=== PATIENT | female | born 1970 | race African-American/Black ===

== ENCOUNTER → 2021-04-07 11:56 | Outpatient (BNVA) | payer OTHER, SELFPAY | PROVIDERS: PCP Internal Medicine; Referring Provider Internal Medicine; Visit Provider Physician Assistant ==

== ENCOUNTER → 2021-04-25 08:25 | Outpatient (BNVA) | payer OTHER, SELFPAY | PROVIDERS: PCP Internal Medicine; Visit Provider Surgery ==

== ENCOUNTER 2021-05-03 09:32 | Outpatient (REF) | payer OTHER, SELFPAY ==
--- NOTE | ~2021-05-03 | XR_ITS ---
EXAMINATION: XR CHEST CLINICAL INFORMATION: Morbid obesity COMPARISON: None TECHNIQUE: 2 views of the chest were obtained. FINDINGS: No significant abnormality is noted involving the heart, lungs, mediastinum, bony thorax or soft tissues. XR/XR chest 2V IMPRESSION: Unremarkable examination.
[2021-05-03 09:58] LABS: MANUAL DIFF FLAG NO
[2021-05-03 10:08] LABS: Basophils Percent Auto 0.4 % (0-2); Eosinophils Absolute Auto 0.2 X10*3/uL (0.0-0.4); Eosinophils Percent Auto 3.1 % (0-4); Hematocrit 38.2 % (37.0-47.0); Imm Gran Abs Auto 0.01 X10*3/uL (0.00-0.03); Imm Gran Pct Auto 0.1 % (0.0-0.4); Lymphocytes Absolute Auto 3.1 X10*3/uL (1.2-4.9); Lymphocytes Percent Auto 43.5 % (20-40); Mean Corpuscular HGB Conc 31.4 g/dl (31.0-35.0); Mean Corpuscular Volume 92.3 fL (80.0-98.0); Mean Platelet Volume 9.9 fL (9.4-12.3); Monocytes Absolute Auto 0.5 X10*3/uL (0.1-1.2); Monocytes Percent Auto 6.3 % (2-11); Neutrophils Absolute Auto 3.3 x10*3/uL (2.0-8.3); Neutrophils Percent Auto 46.6 % (45-73); Platelet Count 283 X10*3/uL (160-400); Red Blood Count 4.14 X10*6/uL (4.20-5.50); Red Cell Distribution Width 13.2 % (11.0-16.0); White Blood Count 7.1 X10*3/uL (4.8-10.8)
[2021-05-03 10:16] LABS: Estimated Average Glucose 103 mg/dL; Hemoglobin A1c % 5.2 %
[2021-05-03 10:33] LABS: Alanine Aminotransferase 13 U/L (0-31); Albumin Level 4.3 g/dL (3.5-5.0); Alkaline Phosphatase 64 U/L (39-117); Anion Gap 14 (12-20); Aspartate Amino Transferase 17 U/L (5-31); Bilirubin Total 0.4 mg/dL (0.0-1.0); Blood Urea Nitrogen 23 mg/dL (9-16); C Reactive Protein 0.93 mg/dL (< or = 0.50); Calcium 9.4 mg/dL (8.4-10.2); Carbon Dioxide 29 mmol/L (22-29); Chloride 106 mmol/L (96-108); Cholesterol 158 mg/dL; Estimated Glomerular Filt Rate 59; Glucose Random 91 mg/dL (60-115); HDL Cholesterol 39 mg/dL; Iron 68 mcg/dL (30-160); LDL Cholesterol Calculated 102 mg/dl; Percent Iron Saturation 24 % (15-50); Potassium 4.7 mmol/L (3.3-5.1); Sodium 144 mmol/L (135-145); Total Iron Binding Capacity 281 mcg/dL (228-428); Total Protein 7.6 g/dL (6.5-8.0); Triglycerides 88 mg/dL; Unsaturated Iron Binding 213 ug/dL
[2021-05-03 10:59] LABS: Ferritin 111 ng/mL (10-250); Insulin 14 uU/mL (2-29); TSH reflex Free T4 2.56 uIU/mL (0.32-4.0); Vitamin D 25-OH Total 36.9 ng/mL (>30)
[2021-05-05 09:03] LABS: Folate 6.2 ng/mL (> or = 4.0); Vitamin B12 390 pg/mL (200-900)
[2021-05-05 13:35] LABS: Calcium (PTHI) 9.4 mg/dL (8.6-10.4); PTHI 82 pg/mL (14-64)
[2021-05-07 07:37] LABS: Zinc 66 mcg/dL (60-130)
[2021-05-07 17:06] LABS: Vitamin A 70 mcg/dL (38-98)
[2021-05-08 08:15] LABS: Vitamin B1 17 nmol/L (8-30)
== END 2021-05-03 09:33 | disposition home or self-care (01) ==
LOC: HO.XRAY 09:32
PROVIDERS: PCP Internal Medicine; Visit Provider Surgery
DX: E66.01 Morbid (severe) obesity due to excess calories (principal); I10 Essential (primary) hypertension; G47.30 Sleep apnea, unspecified; E78.5 Hyperlipidemia, unspecified; J45.909 Unspecified asthma, uncomplicated
CPT/HCPCS: 36415; 71046; 80053; 80061; 82306; 82607; 82728; 82746; 83036; 83525; 83540; 83970; 84425; 84443; 84590; 84630; 85025; 86140

== ENCOUNTER → 2021-05-05 09:45 | Outpatient (REF) | payer OTHER, SELFPAY ==
--- NOTE | 2021-05-05 10:03 | ECG_ITS ---
Test Reason : E66.01 Blood Pressure : / mmHG Vent. Rate : 081 BPM Atrial Rate : 081 BPM P-R Int : 184 ms QRS Dur : 080 ms QT Int : 378 ms P-R-T Axes : 054 -09 015 degrees QTc Int : 439 ms Normal sinus rhythm Minimal voltage criteria for LVH, may be normal variant ( R in aVL ) Borderline ECG No previous ECGs available Referred By: John Sykes Electronically Signed By:CHERI HUTCHINSON MD
== END ==
LOC: HO.CARD 09:45
PROVIDERS: PCP Internal Medicine; Visit Provider Surgery
DX: E66.01 Morbid (severe) obesity due to excess calories (principal); I10 Essential (primary) hypertension; G47.30 Sleep apnea, unspecified; E78.5 Hyperlipidemia, unspecified; J45.909 Unspecified asthma, uncomplicated
CPT/HCPCS: 93005

== ENCOUNTER → 2021-05-14 09:34 | Outpatient (BNVA) | payer OTHER, SELFPAY | PROVIDERS: PCP Internal Medicine; Visit Provider Physician Assistant | DX: Z13.89 Encounter for screening for other disorder (principal) | CPT/HCPCS: 99211 ==

== ENCOUNTER 2021-05-14 14:11 | Outpatient (REF) | payer OTHER, SELFPAY ==
[2021-05-14 16:15] LABS: H Pylori Breath Test Positive (Negative)
== END 2021-05-14 14:12 | disposition home or self-care (01) ==
LOC: HO.LNP 14:11
PROVIDERS: Visit Provider Surgery
DX: E66.01 Morbid (severe) obesity due to excess calories (principal); I10 Essential (primary) hypertension; G47.30 Sleep apnea, unspecified; E78.5 Hyperlipidemia, unspecified; J45.909 Unspecified asthma, uncomplicated
CPT/HCPCS: 83013; 99211

== ENCOUNTER → 2021-05-26 10:06 | Outpatient (BNVA) | payer OTHER, SELFPAY | PROVIDERS: PCP Internal Medicine; Referring Provider Internal Medicine; Visit Provider Dietitian, Registered | DX: E66.01 Morbid (severe) obesity due to excess calories (principal); Z68.42 Body mass index [BMI] 45.0-49.9, adult | CPT/HCPCS: 97802 ==

== ENCOUNTER → 2021-06-02 08:14 | Outpatient (BNVA) | payer OTHER, SELFPAY | PROVIDERS: PCP Internal Medicine; Visit Provider Surgery | DX: Z13.89 Encounter for screening for other disorder (principal) ==

== ENCOUNTER → 2021-06-04 10:39 | Outpatient (BNVA) | payer OTHER, SELFPAY | PROVIDERS: PCP Internal Medicine; Referring Provider Internal Medicine; Visit Provider Counselor Mental Health | DX: F50.81 Binge eating disorder (principal); F41.1 Generalized anxiety disorder | CPT/HCPCS: 90791 ==

== ENCOUNTER → 2021-06-19 08:05 | Outpatient (BNVA) | payer OTHER, SELFPAY | PROVIDERS: PCP Internal Medicine; Visit Provider Dietitian, Registered | DX: E66.01 Morbid (severe) obesity due to excess calories (principal); Z68.41 Body mass index [BMI] 40.0-44.9, adult | CPT/HCPCS: 97803 ==

== ENCOUNTER 2021-06-23 09:41 | Outpatient (REF) | payer OTHER, SELFPAY ==
--- NOTE | ~2021-06-23 | FL_ITS ---
EXAMINATION: XR FLUOROSCOPY UPPER GI WITH AIR CLINICAL INFORMATION: Severe obesity. COMPARISON: None. TECHNIQUE: Routine upper GI air-contrast study was performed. FINDINGS: Following oral administration of thick barium and effervescent granules, there is normal propagation of bolus from the oral cavity through the pharynx and esophagus and into the stomach without any evidence of obstruction, narrowing or stricture. On placing patient supine and prone lying, there is mild gastroesophageal reflux without hiatal hernia. Otherwise the course, caliber and peristalsis of stomach and the duodenal bulb and the sweep are normal. The mucosal pattern of the stomach and the duodenum is normal. FLUOROSCOPY TIME: 2.2 minutes. DOSE AREA PRODUCT: 33.198 uGy-m2 (microgray-meter squared). FL/FL upper GI w air IMPRESSION: Mild gastroesophageal reflux without hiatal hernia.
--- NOTE | ~2021-06-23 | US_ITS ---
EXAMINATION: US COMPLETE ABDOMEN WITH LIVER ELASTOGRAPHY CLINICAL INFORMATION: Obesity COMPARISON: None. TECHNIQUE: Real-time imaging of the abdominal viscera. Noninvasive ultrasound liver fibrosis assessment is performed using Krishna ElastPQ point quantification shear wave elastography (2D-SWE) with a C5-2 MHz transducer. Multiple elastography samples are obtained. FINDINGS: PANCREAS: Not well visualized ABDOMINAL AORTA: The proximal, middle, and distal aortic segments are normal in caliber. INFERIOR VENA CAVA: Visualized portions are normal. LIVER: Normal. The liver demonstrates normal size, contour and echogenicity. No focal lesion or intrahepatic biliary duct dilatation. The right lobe measures 16 cm in length. The left lobe measures 13 cm in length. Portal flow is normal/hepatopedal. Shear wave liver elastography median stiffness is 1.06 m/s (reference: normal median stiffness is 1.3 m/s or less). IQR/median stiffness to assess sampling precision is 0.14 (reference: good quality data set is IQR/median stiffness of 0.15 or less). GALLBLADDER: Normal. The gallbladder is physiologically distended without evidence of stones, sludge, polyps, wall thickening or pericholecystic fluid. COMMON BILE DUCT: Normal in caliber measuring 0.5 cm in diameter. RIGHT KIDNEY: Normal. No hydronephrosis. No renal calculi or focal parenchymal lesions. The kidney measures 10.3 cm in maximum dimension. LEFT KIDNEY: Normal. No hydronephrosis. No renal calculi or focal parenchymal lesions. The kidney measures 11 cm in maximum dimension. SPLEEN: Normal. The spleen measures 9.4 cm in maximum dimension. FREE FLUID: None. US/US abdomen comp w elastography IMPRESSION: 1. Impression: Limited visualization of the pancreas. Otherwise unremarkable exam. 2. Liver elastography: Adequate liver sampling. Normal liver stiffness. REFERENCE: Society of Radiologists in Ultrasound Liver Stiffness Thresholds (2020): LIVER STIFFNESS THRESHOLDS: *Liver Stiffness equal or less than 1.3 m/s: High probability of being normal. *Liver Stiffness less than 1.7 m/s: In the absence of other known clinical signs, rules out compensated advanced chronic liver disease. *Liver Stiffness 1.7-2.1 m/s: Suggestive of compensated advanced chronic liver disease but need further test for confirmation. *Liver Stiffness over 2.1 m/s: Rules in compensated advanced chronic liver disease. *Liver Stiffness over 2.4 m/s: Suggestive of clinically significant portal hypertension. QUALITY OF DATA SET: *IQR/Median value equal or less than 0.15 implies a quality data set. *IQR/Median value over 0.15 implies a poor quality data set. SIGNIFICANT CHANGE FROM PRIOR EXAM: Significant change if liver stiffness measurement is 10% or greater from prior exam. OTHER CONSIDERATIONS: The stage of liver fibrosis may be overestimated in the setting of acute hepatitis, liver inflammation, elevated liver function tests, hepatic vascular congestion, obstructive cholestasis, non-fasting state, and infiltrative diseases such as amyloidosis and lymphoma. In some patients with NAFLD, the liver stiffness thresholds for compensated advanced chronic liver disease may be lower. In causes other than viral hepatitis and NAFLD, liver stiffness thresholds are not well established.
== END 2021-06-23 09:42 | disposition home or self-care (01) ==
LOC: HO.US 09:41
PROVIDERS: PCP Internal Medicine; Visit Provider Surgery
DX: E66.01 Morbid (severe) obesity due to excess calories (principal); I10 Essential (primary) hypertension; G47.30 Sleep apnea, unspecified; E78.5 Hyperlipidemia, unspecified; J45.909 Unspecified asthma, uncomplicated
CPT/HCPCS: 74246; 76705; 76981

== ENCOUNTER 2021-06-24 09:47 | Outpatient (REF) | payer OTHER, SELFPAY ==
[2021-06-28 10:04] LABS: H Pylori Breath Test Positive (Negative)
== END 2021-06-24 09:48 | disposition home or self-care (01) ==
LOC: HO.LNP 09:47
PROVIDERS: PCP Internal Medicine; Referring Provider Internal Medicine; Visit Provider Physician Assistant Surgical
DX: Z01.818 Encounter for other preprocedural examination (principal)
CPT/HCPCS: 83013; 99211

== ENCOUNTER → 2021-07-04 13:40 | Outpatient (BNVA) | payer OTHER, SELFPAY | PROVIDERS: PCP Internal Medicine; Referring Provider Internal Medicine; Visit Provider Surgery | DX: Z13.89 Encounter for screening for other disorder (principal) ==

== ENCOUNTER → 2021-07-09 08:31 | Outpatient (BNVA) | payer OTHER, SELFPAY | PROVIDERS: PCP Internal Medicine; Visit Provider Surgery | DX: Z13.89 Encounter for screening for other disorder (principal) ==

== ENCOUNTER 2021-07-15 07:54 | Inpatient (IN) | payer OTHER, SELFPAY ==
[2021-07-03 12:11] VITALS: BMI 43.0
--- NOTE | 2021-07-08 13:56 | P.CONAN_ITS ---
Documented by User: Maria Del Rosario Bustamante NP 07/08/21 13:58 HPI - Anesthesia Eval Consult details Narrative: 51yo F for Gastrectomy Sleeve,EGD,possible diaphragmatic hernia,possible ventral hernia,possible open T/C with Dr Garrido, Neurology - Pt has not had any recent seizures and is optimized on current medications. [facility] Active Problems Active Problems: All Active Problems (Updated 07/03/21 @ 13:06 by Ilene Newby RN) Vitamin B12 deficiency (Acute) H. pylori infection (Acute) Binge eating disorder (Acute) Generalized anxiety disorder (Acute) Insomnia (Acute) Anxiety (Acute) Depression (Acute) Asthma (Acute) Hyperlipidemia (Acute) CVA (cerebral vascular accident) (Acute) Seizure (Acute) Sleep apnea with use of continuous positive airway pressure (CPAP) (Acute) Hypertension (Acute) Morbid obesity (Acute) Past Medical History Medical History (Updated 07/15/21 @ 10:44 by John Sykes MD) Anxiety Asthma CVA (cerebral vascular accident) Depression Hyperlipidemia Hypertension Insomnia Morbid obesity Post traumatic stress disorder (PTSD) Seizure Sleep apnea with use of continuous positive airway pressure (CPAP) Family History Family History (Updated 04/24/21 @ 09:14 by Cristina Iglesias LPN) Mother Diabetes Brother No problems noted. Surgical History Surgical History (Updated 07/15/21 @ 13:49 by ANJEL Quezada) Hx of colonoscopy Hx of wisdom tooth extraction Social History Social History (Updated 04/24/21 @ 09:11 by Cristina Iglesias LPN) Household Members Other:: mother Are you a primary post acute care nurse to a significant other at home: No Alcohol intake: current Alcohol intake frequency: does not drink Patient Tobacco Use Status: Never used Tobacco Use of substances other than those prescribed or required for medical reasons: No Have you been hit, kicked, punched, or otherwise hurt by someone within the past year? If so, by whom?: No Are you DNR?: No Advance Directives: No Advance Directives Information Provided: Yes Advance Directives on File: No Recently lost weight without trying: No Patient : No FDLMP: unknown : No Poor oral hygiene: No Meds Allergies Allergy/AdvReac Type Severity Reaction Status Date / Time Seasonal Allergies Allergy Mild itchy Verified 07/09/21 13:20 eyes, runny nose Home Medications Medication Instructions Recorded Confirmed Last Taken Type albuterol sulfate 90 mcg/actuation 2 puff INHALATION QID PRN 04/07/21 07/09/21 Unknown History aerosol inhaler (ProAir HFA) aripiprazole 5 mg tablet 5 mg PO DAILY 04/07/21 07/09/21 Unknown History aspirin 81 mg tablet,delayed 81 mg PO DAILY 04/07/21 07/09/21 Unknown History release atorvastatin 40 mg tablet 40 mg PO BEDTIME 04/07/21 07/09/21 Unknown History carbamazepine 100 mg 100 mg PO BID 04/07/21 07/09/21 07/15/21 History capsule,extended release [id number] carbamazepine 300 mg 300 mg PO BID 04/07/21 07/09/21 07/15/21 History capsule,extended release [id number] cholecalciferol (vitamin D3) 50 50 mcg PO .DAILY @1200 04/07/21 07/09/21 Unknown History mcg (2,000 unit) capsule (Vitamin D3) clonazepam 0.5 mg tablet 0.5 mg PO DAILY PRN 04/07/21 07/09/21 Unknown History docusate sodium 100 mg capsule 100 mg PO BID 04/07/21 07/09/21 Unknown History escitalopram oxalate 10 mg tablet 30 mg PO DAILY 04/07/21 07/09/21 Unknown History ferrous fumarate 324 mg (106 mg 324 mg PO DAILY 04/07/21 07/09/21 Unknown History iron) tablet (Ferrocite) fluticasone propionate 110 1 inh INHALATION DAILY 04/07/21 07/09/21 Unknown History mcg/actuation HFA aerosol inhaler (Flovent HFA) labetalol 200 mg tablet 800 mg PO TID 04/07/21 07/09/21 07/15/21 History montelukast 10 mg tablet 10 mg PO BEDTIME 04/07/21 07/09/21 Unknown History nifedipine 90 mg tablet,extended 90 mg PO DAILY 04/07/21 07/09/21 Unknown History release peg-electrolyte solution 420 gram ml PO 04/07/21 07/09/21 Unknown History oral solution prazosin 1 mg capsule 3 mg PO BEDTIME 04/07/21 07/09/21 Unknown History sennosides 8.6 mg tablet (senna) 8.6 mg PO BID 04/07/21 07/09/21 Unknown History hydroxyzine HCl 50 mg tablet 1 tab PO TID 07/15/21 07/15/21 Unknown History Exam Exam Date and Time: July 08, 2021 1356 Height,Weight and Vital Signs: Height 5 ft 3 in Weight 110.223 kg Narrative Narrative: EKG 04/2021 Vent. Rate : 081 BPM ? ? Atrial Rate : 081 BPM ?? P-R Int : 184 ms? QRS Dur : 080 ms ? ? QT Int : 378 ms ? ? ? P-R-T Axes : 054 -09 015 degrees ?? QTc Int : 439 ms ? Normal sinus rhythm Minimal voltage criteria for LVH, may be normal variant ( R in aVL ) Borderline ECG No previous ECGs available Assessment and Plan Assessment Anesthesia Assessment: Chart Reviewed Documented by User: Henry Terrazas MD 07/15/21 18:45 HPI - Anesthesia Eval Consult details Narrative: 51yo F for Gastrectomy Sleeve,EGD,possible diaphragmatic hernia,possible ventral hernia,possible open T/C with Dr Garrido, Neurology - Pt has not had any recent seizures and is optimized on current medications. As per patient had a seizure vs Aura on wednesday , patient became disoriented and confused , took clonazepam and felt at baseline patient contacted the neurologist , as per the neurologist this was possibly Aura and did not want to change any medications and was on board to proceed with the planned procdure . [facility] Past Medical History Medical History (Updated 07/15/21 @ 10:44 by John Sykes MD) Anxiety Asthma CVA (cerebral vascular accident) Depression Hyperlipidemia Hypertension Insomnia Morbid obesity Post traumatic stress disorder (PTSD) Seizure Sleep apnea with use of continuous positive airway pressure (CPAP) Family History Family History (Updated 04/24/21 @ 09:14 by Cristina Iglesias LPN) Mother Diabetes Brother No problems noted. Family history of problems with anesthesia: No Surgical History Surgical History (Updated 07/15/21 @ 13:49 by ANJEL Quezada) Hx of colonoscopy Hx of wisdom tooth extraction History of Problems with Anesthesia: No Social History Social History (Updated 04/24/21 @ 09:11 by Cristina Iglesias LPN) Household Members Other:: mother Are you a primary post acute care nurse to a significant other at home: No Alcohol intake: current Alcohol intake frequency: does not drink Patient Tobacco Use Status: Never used Tobacco Use of substances other than those prescribed or required for medical reasons: No Have you been hit, kicked, punched, or otherwise hurt by someone within the past year? If so, by whom?: No Are you DNR?: No Advance Directives: No Advance Directives Information Provided: Yes Advance Directives on File: No Recently lost weight without trying: No Patient : No FDLMP: unknown : No Poor oral hygiene: No Meds Allergies Allergy/AdvReac Type Severity Reaction Status Date / Time Seasonal Allergies Allergy Mild itchy Verified 07/09/21 13:20 eyes, runny nose Home Medications Medication Instructions Recorded Confirmed Last Taken Type albuterol sulfate 90 mcg/actuation 2 puff INHALATION QID PRN 04/07/21 07/09/21 Unknown History aerosol inhaler (ProAir HFA) aripiprazole 5 mg tablet 5 mg PO DAILY 04/07/21 07/09/21 Unknown History aspirin 81 mg tablet,delayed 81 mg PO DAILY 04/07/21 07/09/21 Unknown History release atorvastatin 40 mg tablet 40 mg PO BEDTIME 04/07/21 07/09/21 Unknown History carbamazepine 100 mg 100 mg PO BID 04/07/21 07/09/21 07/15/21 History capsule,extended release [id number] carbamazepine 300 mg 300 mg PO BID 04/07/21 07/09/21 07/15/21 History capsule,extended release [id number] cholecalciferol (vitamin D3) 50 50 mcg PO .DAILY @1200 04/07/21 07/09/21 Unknown History mcg (2,000 unit) capsule (Vitamin D3) clonazepam 0.5 mg tablet 0.5 mg PO DAILY PRN 04/07/21 07/09/21 Unknown History docusate sodium 100 mg capsule 100 mg PO BID 04/07/21 07/09/21 Unknown History escitalopram oxalate 10 mg tablet 30 mg PO DAILY 04/07/21 07/09/21 Unknown History ferrous fumarate 324 mg (106 mg 324 mg PO DAILY 04/07/21 07/09/21 Unknown History iron) tablet (Ferrocite) fluticasone propionate 110 1 inh INHALATION DAILY 04/07/21 07/09/21 Unknown History mcg/actuation HFA aerosol inhaler (Flovent HFA) labetalol 200 mg tablet 800 mg PO TID 04/07/21 07/09/21 07/15/21 History montelukast 10 mg tablet 10 mg PO BEDTIME 04/07/21 07/09/21 Unknown History nifedipine 90 mg tablet,extended 90 mg PO DAILY 04/07/21 07/09/21 Unknown History release peg-electrolyte solution 420 gram ml PO 04/07/21 07/09/21 Unknown History oral solution prazosin 1 mg capsule 3 mg PO BEDTIME 04/07/21 07/09/21 Unknown History sennosides 8.6 mg tablet (senna) 8.6 mg PO BID 04/07/21 07/09/21 Unknown History hydroxyzine HCl 50 mg tablet 1 tab PO TID 07/15/21 07/15/21 Unknown History Exam Airway Mallampati Class: IV TM Dist: >3cm Neck ROM: Full Loose/Missing/Broken Teeth: Yes Heart: S1, S2 Lungs: b/l breath sounds Assessment and Plan Assessment Anesthesia Assessment: Anesthesia Plan Discussed Final Anesthetic Review Family History of Problems with Anesthesia: No History of Problems with Anesthesia: No NPO: Yes ASA Class: III Final Preanesthetic Review: Meds/Allgs Chart Reviewed, Consent Obtained/Reviewed and Anes Risks/Benef Reviewed Patient Risk: High Procedure Risk: Intermediate Anesthetic Plan Anesthetic Plan: GA Disposition: Inp. Admit - Standard Bed
[2021-07-10 10:15] LABS: MANUAL DIFF FLAG NO
[2021-07-10 10:52] LABS: Basophils Percent Auto 0.4 % (0-2); Eosinophils Absolute Auto 0.3 X10*3/uL (0.0-0.4); Eosinophils Percent Auto 3.4 % (0-4); Hematocrit 37.9 % (37.0-47.0); Hemoglobin 12.2 g/dl (12.0-16.0); Imm Gran Abs Auto 0.02 X10*3/uL (0.00-0.03); Imm Gran Pct Auto 0.3 % (0.0-0.4); Lymphocytes Absolute Auto 2.4 X10*3/uL (1.2-4.9); Lymphocytes Percent Auto 32.3 % (20-40); Mean Corpuscular HGB Conc 32.2 g/dl (31.0-35.0); Mean Corpuscular Hemoglobin 29.2 pg (27.0-33.0); Mean Corpuscular Volume 90.7 fL (80.0-98.0); Mean Platelet Volume 10.2 fL (9.4-12.3); Monocytes Absolute Auto 0.5 X10*3/uL (0.1-1.2); Monocytes Percent Auto 6.8 % (2-11); Neutrophils Absolute Auto 4.2 x10*3/uL (2.0-8.3); Neutrophils Percent Auto 56.8 % (45-73); Platelet Count 301 X10*3/uL (160-400); Red Blood Count 4.18 X10*6/uL (4.20-5.50); Red Cell Distribution Width 13.6 % (11.0-16.0); White Blood Count 7.4 X10*3/uL (4.8-10.8)
[2021-07-10 11:02] LABS: Estimated Average Glucose 97 mg/dL
[2021-07-10 11:09] LABS: INTERNATIONAL NORM RATIO 1.2 (0.9-1.1); Prothrombin Time 13.4 SEC (9.9-13.0)
[2021-07-10 11:12] LABS: Partial Thromboplastin Time 36.7 SEC (24.1-38.0)
[2021-07-10 11:41] LABS: Alanine Aminotransferase 16 U/L (0-31); Albumin Level 4.3 g/dL (3.5-5.0); Alkaline Phosphatase 79 U/L (39-117); Anion Gap 16 (12-20); Aspartate Amino Transferase 17 U/L (5-31); Bilirubin Total 0.3 mg/dL (0.0-1.0); Blood Urea Nitrogen 16 mg/dL (9-16); C Reactive Protein 1.71 mg/dL (< or = 0.50); Calcium 9.9 mg/dL (8.4-10.2); Carbon Dioxide 27 mmol/L (22-29); Chloride 104 mmol/L (96-108); Cholesterol 169 mg/dL; Creatinine Clr Calc Pharmacy 88.1; Estimated Glomerular Filt Rate > 60; Glucose Random 96 mg/dL (60-115); HDL Cholesterol 35 mg/dL; LDL Cholesterol Calculated 108 mg/dl; Potassium 4.5 mmol/L (3.3-5.1); Sodium 142 mmol/L (135-145); Total Protein 7.8 g/dL (6.5-8.0); Triglycerides 130 mg/dL
[2021-07-10 11:54] LABS: Insulin 13 uU/mL (2-29); TSH reflex Free T4 2.27 uIU/mL (0.32-4.0)
--- NOTE | 2021-07-12 17:57 | P.HPSUR_ITS ---
Pre-Procedural Eval Section A Date of Service: 07/12/21 The patient is an INPATIENT: Yes The History & Physical has been completed within 30 days and I have reviewed it.: Yes Section B Chief Complaint: odesity Relevant Family History (Specify if Yes): No Relevant Social History: None Present Medications: None Medical History: No relevant PMH History of Previous Operations: No relevant previous surgery Allergies: Allergies Allergy/AdvReac Type Severity Reaction Status Date / Time Seasonal Allergies Allergy Mild itchy Verified 07/09/21 13:20 eyes, runny nose Review of Systems Sugical H&P ROS: Negative: Constitution, Cardiovascular, Respiratory, Neurological, Psychiatric, Hem-Onc, Allergic/Immunologic, Gastrointestinal, Genitourinary, Musculoskeletal, Integumentary, Endocrine and Eyes/Ears/Nos e/Throat Exam Surgical H&P Exam: Normal: HEENT, Normal: Heart, Normal: Lungs, Normal: Extremities, Normal: Abdomen, Normal: Skin and Normal: Neurological Plan Diagnosis/Plan: Unchanged I have reviewed the history and physical and performed a pertinent physical examination on my patient. No changes have occurred unless specified.
[2021-07-14 13:03] LABS: COVID-19 Test Negative (Negative); IDNOW Serial# 16C4AD1C
[2021-07-15] VITALS (15 sets, daily range): BP systolic 147–190; BP diastolic 80–110; PULSE 71–83; RESP 16–20; TEMP 36.5–37.1; O2SAT 91–99
[2021-07-15] MEDS: Lactated Ringers 1,000 ML 999 ML IV (08:45)
--- NOTE | 2021-07-15 10:42 | PM.PNGS ---
Subjective Subjective Date of Service: 07/16/21 Interval history: Patient has mild incisional pain, but was able to ambulate and use the incentive spirometer. She is tolerating phase 1 bariatric diet Physical Exam Vital Signs: Vital Signs: Last Vital Signs Temp 97.7 F 07/15/21 08:29 Pulse 72 07/15/21 08:29 Resp 16 07/15/21 08:29 BP 147/80 H 07/15/21 08:29 Pulse Ox 97 07/15/21 08:29 BMI result Body Mass Index 43.0 GI: Inspection: Yes normal to inspection, Yes incision (clean, dry and intact) and Yes obesity Extrem: Right lower extremity: normal to inspection (no calf tenderness) Left lower extremity: normal to inspection (no calf tenderness) Objective Data Active Medications Albuterol Sulfate (Albuterol Sulfate (0.083%) 2.5 Mg/3 Ml Vial.Neb) 2.5 mg INHALE ONCE PRN PRN Reason: Shortness of Breath/Wheezing Lactated Ringer's (Lr) 1,000 mls @ 100 mls/hr IVCONT .Q10H DAMON Labs CBC & Chem 7: 07/16/21 06:08 07/16/21 06:08 Labs: Laboratory Results - last 24 hr 07/14/21 12:38 COVID-19 (SOFIA) Negative COVID-19 Clin Com See Note Procedures Date of Service Date of Service: 07/16/21 Progress Note: A&P Assessment and plan (1) Morbid obesity: Status: Acute Assessment and Plan: s/p laparoscopic sleeve gastrectomy, lysis of adhesions repair of diaphragmatic hernia, and gastropexy Doing well Check am labs. If OK, will discharge home? (2) Hypertension: Status: Acute (3) Sleep apnea with use of continuous positive airway pressure (CPAP): Status: Acute (4) Seizure: Status: Acute (5) CVA (cerebral vascular accident): Status: Acute (6) Hyperlipidemia: Status: Acute (7) Asthma: Status: Acute (8) Anxiety: Status: Acute (9) Depression: Status: Acute (10) GERD (gastroesophageal reflux disease): Status: Acute (11) S/P laparoscopic sleeve gastrectomy: Status: Acute Time Spent With Patient Time: Total time spent is greater than 50% in coordination of care (as documented) at patient's floor/unit and/or counseling patient: Quality Stroke Does the patient have a stroke diagnosis?: No VTE Prior VTE?: No VTE Risk Level:: Surgical - moderate VTE Device Contraindication: N/A - Device Ordered VTE Drug Contraindication: Treatment Not Indicated
--- NOTE | 2021-07-15 10:44 | PM.OP ---
Brief Operative Note Date of Service: 07/15/21 Pre-op diagnosis: Morbid obesity with comorbidities (see below) Post-op diagnosis: same Procedure: INITIAL PATIENT BMI ON PRESENTATION AT OUR OFFICE: 47.8 kg/m2 LAST BMI BEFORE SURGERY: 42.8 kg/m2 COMORBIDITIES: sleep apnea on CPAP, hypertension, hyperlipidemia, seizure, CVA, asthma, depression, anxiety, GERD ?The patient presented to the Weight Management Program with significant obesity that was negatively impacting the patient's comorbidities as listed above.? The program is a phased program with a special focus on preoperative medical weight management to promote substantial weight loss and prepare the patients for the second phase of the program: bariatric surgery. The patient participated in an intensive weekly lifestyle ?intervention and exercise program during which the patient ?has lost between the initial office visit and the last preoperative visit 31.6lbs, or 11.7% of initial actual body weight. It was deemed appropriate for the patient to now have bariatric surgery. In light of the current Covid-19 pandemic and the well documented strong association of obesity and increased risk of worse outcomes if infected with Covid-19 (REFERENCES:https://pubmed.ncbi.nlm.nih.gov/55137635/,?https://pubmed.ncbi.nlm.nih.gov/67372759/), any delay in undergoing bariatric surgery may lead to the patient's worsening health condition and increased?risk of more severe Covid-19 disease if infected. In addition a recent?study from [facility] published in [facility] on 02/24/2021 ([email or web address]) found that, among patients with obesity, substantial weight loss achieved with surgery was associated with improved outcomes of COVID-19 infection. The findings suggest that obesity can be a modifiable risk factor for the severity of COVID-19 infection. In addition, the patient met the BMI-criteria for bariatric surgery based on the BMI on initial presentation. The patient should not be penalized for achieving such weight loss because ?it is not sustainable long-term without surgical intervention and it was achieved in preparation for bariatric surgery ?under my direction and based on my published research ([email or web address]).[email or web address] and?https://www.soard.org/article/[email or web address])42330-[email or web address]/pdf) ?that a 10% preoperative weight loss improves long-term weight loss after surgery and reduces perioperative complications.? Insurance carriers such as [facility] have endorsed my recommendations ?and have included in their policies criteria to include a 10% preoperative weight loss requirement. PROCEDURE: Esophago-gastroscopy, laparoscopic repair of incarcerated diaphragmatic hernia, laparoscopic lysis of adhesions, laparoscopic sleeve gastrectomy and laparoscopic gastropexy INDICATIONS: This is a 51 year-old female who was electively scheduled for laparoscopic, possibly open sleeve gastrectomy. The risks and complications of the procedure were discussed with the patient in advance, particularly the possibility of ; pulmonary embolism; staple line leak; bleeding; GERD; cardiac, pulmonary, or renal complications; as well as long-term problems such as insufficient weight loss, vitamin deficiency, strictures, or ulcers. The patient understood all the risks, and was in agreement to proceed with surgery. DESCRIPTION OF PROCEDURE: After informed consent was obtained from the patient, the patient was given preoperative antibiotics, and was transferred to the operating room. After successful induction of general anesthesia, pneumatic compression devices were placed on both lower extremities. An upper endoscopy was performed next. The oropharynx and esophagus appeared to be within normal limits. There was no diaphragmatic hernia present, consistent with the findings of the preoperative upper GI. The stomach was entered. Then after all fluid and air were suctioned and the stomach was fully decompressed, the scope was withdrawn and secured in the mid esophagus. The patient was then prepped and draped in the usual sterile manner, and abdominal access was established at the right upper quadrant with the Feliciano technique. A 12 mm blunt port was inserted, and the abdomen was insufflated with CO2 to a pressure of 15 mmHg. Under direct visualization, additional ports were placed, specifically two 5 mm Versi-step ports to the left upper quadrant, and a 5 mm Versi-Step port to the right upper quadrant. 1% lidocaine plain was used to infiltrate all port sites as well as all fascia defects. Following that, the patient was placed in a steep reverse Trendelenburg position. An additional 5 mm port was placed to the right flank for the Mediflex retractor that was used to retract the left lobe of the liver. The gastro-esophageal fat pad was opened with the ultrasonic device (Thunderbeat, Olympus) and the anterior esophagus and hiatus were exposed. The angle of His was opened with the ultrasonic device the fundus of the stomach from any diaphragmatic and splenic attachments. I then opened the gastrocolic ligament between the transverse colon and the greater curvature of the stomach with the ultrasonic device to enter the lesser sac and facilitate the ligation of the short gastric vessels. I started at a mid-point along the greater curvature and using the Thunderbeat, all short gastric vessels were divided all the way to the angle of His until the left kostas was completely dissected at its entirety. I then divided the gastro-colic ligament distally to a distance of about 3-4 cm proximal to the pylorus.? The stomach was then divided transversely with one Endo SUSIE-45 purple, one SUSIE-45 orange loads and four SUSIE-60 articulating orange loads using the AEON stapler and loads. Every effort was made that the gastric sleeve had a tubular shape and an even caliber throughout. Once the sleeve resection was completed, the staple line of the gastric sleeve was reinforced with Hemoclips. The resected stomach was retrieved without difficulty from the Feliciano port. A gastropexy was then performed in order to prevent postoperative GERD and partial gastric volvulus. Several interrupted 2.0 Surgidac sutures were placed between the sleeve's staple line and the previously divided greater omentum and gastro-colic ligament using the Endo-Stitch device. ?An upper endoscopy was performed. There was no narrowing at the GE junction. The scope was easily advanced all the way to the pylorus which was clearly visualized. There was no narrowing anywhere and the sleeve's caliber was even throughout. The sleeve's staple line was inspected and there was no evidence of ischemia, bleeding or dehiscence. At that point the gastroscope was withdrawn from the patient?s mouth while we were decompressing the bowel and the stomach from any remaining air. I looked into the lesser sac to see how the sleeve was situating and it was situating well. There was no bleeding from the staple line, spleen, or short gastric vessels. The Mediflex retractor was removed, and the undersurface of the liver was inspected and there was no bleeding. The patient was placed in supine position. I closed the fascial defect of the 12 mm port site with a figure of eight #1 Polysorb suture. Then 100 cc 0.25 % Marcaine plain with 10 mg of Dexamethasone were used to infiltrate the fascial closure as well as all skin incisions. At this point, the abdomen was deflated, all ports were removed under direct vision, and no bleeding was noted from any of the port sites. The skin incisions were irrigated with saline and were closed with 4-0 absorbable monofilament sutures. Steri-Strips and OpSites were used to cover all incisions. The patient was extubated and was transferred in stable condition to the recovery room for further care. I was present and performed all her parts of the procedure. Mr. Salcido was the list of first job ideas. There were no residents to assist with this case. Royce Sykes MD, PhD, FACS Surgeon: John Sykes MD Anesthesia: GETA, local and other (TAP block & 7ml Zynrelef) Was an Nursery Rn used for this Procedure?: No Nursery Rn: [place] Estimated blood loss (mL): 10 IV fluids (mL): 2,500 Urine output (mL): 0 (No Love to gravity) Pathology: other (Stomach) Condition: stable Disposition: PACU
[2021-07-15] MEDS: Lactated Ringers 1,000 ML 100 ML IVCONT ×2 (10:56→18:17)
--- NOTE | 2021-07-15 11:54 | PHA.MEDREC ---
Pharmacy Consult ? Medication Reconciliation Pharmacy has reviewed the medication reconciliation.
--- NOTE | 2021-07-15 13:55 | P.DS_ITS ---
DS: Providers Provider Date of Service: 07/16/21 Date of admission: 07/15/21 07:54 Primary care physician: Nicolás Andres III, MD DS: Diagnosis Discharge Diagnosis (1) Morbid obesity: Status: Acute (2) Hypertension: Status: Acute (3) Sleep apnea with use of continuous positive airway pressure (CPAP): Status: Acute (4) Seizure: Status: Acute (5) CVA (cerebral vascular accident): Status: Acute (6) Hyperlipidemia: Status: Acute (7) Asthma: Status: Acute (8) Anxiety: Status: Acute (9) Depression: Status: Acute (10) GERD (gastroesophageal reflux disease): Status: Acute DS: Summary Hospital Course Hospital Course: ADMITTING DIAGNOSIS: morbid obesity, asthma, anxiety, htn, depression, cva, hyperlipidemia, ptsd, tania, seizure disorder ? DISCHARGE DIAGNOSIS: same, s/p laparoscopic sleeve gastrectomy ? PAST SURGICAL HISTORY: none ? PROCEDURE: upper endoscopy, laparoscopic sleeve gastrectomy a ? DISCHARGE SUMMARY: ? History of Present Illness: ? The patient is a?51 year-old woman with a BMI of?47.8 kg/m2 and associated co- morbidities as described above. The patient had extensive work-up,lost?27.2 lbs preoperatively and was electively scheduled for laparoscopic, possible open sleeve gastrectomy and gastropexy. Risks and complications of the surgery were discussed with the patient in advance, particularly the possibility of , pulmonary embolism, anastomotic leak, bleeding, bowel injury, GERD, cardiac, renal or pulmonary complications. The patient understood all the risks and was in agreement with the surgical plan. ? Hospital Course: ? The patient underwent an uneventful laparoscopic sleeve gastrectomy with gastropexy on the day of admission. Postoperatively, the patient was transferred to the surgical floor. The patient received IV Acetaminophen and IV dilaudid for pain control. Patient was started on bariatric phase 1 diet POD #0. On posto perative day one, the patient was feeling well without nausea, vomiting, fevers, or tachycardia. The patient had some mild incisional pain and the abdomen was soft. ? On the morning of postoperative day one, the patient was continued on 1 ounce of water or ice every half hour. During the day, the patient did fairly well, having some incisional pain, but able to ambulate adequately and to tolerate liquids well. ? Since the patient is doing well, we decided that the patient was ready to be discharged. The patient was given instructions to follow-up with me next week and to call my office for any fever over 101, persistent abdominal pain, nausea, vomiting, GERD, symptoms of DVT such as calf tenderness, or leg swelling, or pulmonary embolism such as chest pain or shortness of breath. The patient was also instructed to drink 40-60 ounces of liquids per day using the 1-ounce cups. The patient had been given prescriptions for Tylenol for pain, Zofran prn for nausea, and pantoprazole and carafate previously. The patient was encouraged to ambulate and use the incentive spirometer. The patient was allowed to shower, but no baths, and encouraged to stay active at home. All of these ins tructions were given to the patient personally. All questions were answered and the patient understood all instructions, the instructions were also given to the patient in print. Time Spent with Patient Time attestation: Total time spent providing and/or coordinating discharge services: Discharge coordination time: Less than 30 minutes Quality: Safe Use of Opioids Does Pt have an Active Cancer Diagnosis on the Problem List?: No Quality: Stroke Does the patient have a stroke diagnosis?: Yes Reason for No Anti-thrombotic at DC: Contraindicated (recent surgery) Reason for No Anticoagulant at DC: Not indicated (old cva) Reason Not Initiating IV-Tpa: Not indicated (old cva) Reason for No Anti-thrombotic by Day Two: Not indicated (old cva) Reason for No Statin at DC: N/A - Med Ordered Physical Exam Vital Signs: Vital Signs: Last Vital Signs Temp 97.8 F 07/15/21 13:42 Pulse 72 07/15/21 13:47 Resp 20 07/15/21 13:47 BP 159/97 H 07/15/21 13:47 Pulse Ox 91 L 07/15/21 13:47 BMI result Body Mass Index 43.0 DS: Data Data Completed and Pending Pending studies at discharge: Pending at discharge 07/15/21 13:23 Surgical [PTH] Routine Discharge Plan Discharge Patient Disposition: Home, Self-Care Discharge Diagnosis: s/p laparoscopic sleeve gastrectomy Referrals: Nicolás Andres III, MD [Primary Care Provider] - 1 Week Discharge Medications: Continued hydroxyzine HCl 50 mg tablet 1 tab PO TID 0RF labetalol 200 mg tablet 800 mg PO TID Qty: 0 0RF Label Comments: PATIENT ONLY TOOK 400MG THIS AM Rx Instructions: be sure to check blood pressure daily and communicate number with Dr Sykes carbamazepine 100 mg capsule, ER multiphase 12 hr 100 mg PO BID 0RF Label Comments: with 300 mg BID carbamazepine 300 mg capsule, ER multiphase 12 hr 300 mg PO BID 0RF Label Comments: with 100 mg BID aripiprazole 5 mg tablet 5 mg PO DAILY 0RF docusate sodium 100 mg capsule 100 mg PO BID 0RF atorvastatin 40 mg tablet 40 mg PO BEDTIME 0RF sennosides [senna] 8.6 mg tablet 8.6 mg PO BID 0RF montelukast 10 mg tablet 10 mg PO BEDTIME 0RF nifedipine 90 mg tablet extended release 90 mg PO DAILY 0RF escitalopram oxalate 10 mg tablet 30 mg PO DAILY 0RF Flovent HFA 110 mcg/actuation HFA aerosol inhaler 1 inh inhalation DAILY 0RF clonazepam 0.5 mg tablet 0.5 mg PO DAILY PRN (Reason: anxiety) 0RF prazosin 1 mg capsule 3 mg PO BEDTIME 0RF albuterol sulfate [ProAir HFA] 90 mcg/actuation HFA aerosol inhaler 2 puff inhalation QID PRN (Reason: cough) 0RF pantoprazole 40 mg tablet,delayed release (DR/EC) 40 mg PO DAILY Qty: 30 2RF sucralfate 100 mg/mL suspension 10 ml PO BID Qty: 400 2RF ondansetron HCl 4 mg tablet 4 mg PO Q12H Qty: 20 0RF Held aspirin 81 mg tablet,delayed release (DR/EC) 81 mg PO DAILY 0RF Hold Instructions: until discussed with Dr Sykes Discontinued mecobalamin (vitamin B12) 1,000 mcg tablet,disintegrating 1,000 mcg sublingual DAILY Qty: 30 2RF Rx Instructions: place tablet under tongue and allow to dissolve for at least30 secs before swallowing omeprazole 40 mg capsule,delayed release(DR/EC) 40 mg PO DAILY Qty: 14 0RF amoxicillin 500 mg capsule 500 mg PO Q12H Qty: 28 0RF cholecalciferol (vitamin D3) [Vitamin D3] 50 mcg (2,000 unit) capsule 50 mcg PO .DAILY @1200 0RF ferrous fumarate [Ferrocite] 324 mg (106 mg iron) tablet 324 mg PO DAILY 0RF peg-electrolyte soln 420 gram recon soln PO 0RF polyethylene glycol 3350 [Miralax] 17 gram powder in packet 17 g PO DAILY Qty: 14 0RF Rx Instructions: Mix each packet with 8oz of water and do 7 packets on 07/13/21 and another 7 packets on 07/14/21 Discharge Orders: Discharge Order (Routine); Ordered 07/16/21 Ordered By: John Sykes Diet: other Activity on Discharge: No heavy lifting Stand Alone Forms: Patient Portal Discharge page Care Plan Goals: weight loss Health Concerns: morbid obesity Plan of Treatment: No tub baths, sex or returning to work until discussed at first post op appointment. No exercise, alcohol, tobacco or illegal drug use. Continue to use incentive spirometer hourly while awake. Walk in home for 5- 10 minutes every 2 hours during the first week. Follow all instructions in the bariatric handbook and call with any questions.Discharge Instructions 1. Please call your doctor or come back to the emergency room should any new symptoms arise. 2. You will receive a courtesy call from [facility] 24-48 hours after discharge. 3. Activity: abstain from alcohol, practice limited stair climbing, no bending, no driving, no exercise, no illicit substances, no lifting, no sex, no tub bath, no work. 4. Diet: continue as discussed with Dr. Sykes. 5. Dressing Change/Wound Care: Your incision is covered by clear bandages and guaze underneath. If the area is tender, you may apply an ice pack for short intervals (no more than 20 minutes on, followed by at least 20 minutes off). Do not apply heat. Do not use creams, lotions, or topical antibiotics unless instructed to do so by your surgeon. These can cause infection or allergic reaction. 6. Call your doctor if: - Your temperature exceeds 101.5 F - You experience excessive pain or swelling - You have an unexpected reaction to medication - You have excessive bleeding - You experience continued vomiting/nausea - Your incision begins to separate - Your incision shows signs of infection such as increased redness, swelling, excessive pain, heat, or drainage (light blood or clear fluid is normal) 7. General instructions: No lifting greater than 5 lbs for the next 4 weeks[address] driving within 24 hours of taking narcotic pain medications. If you do not move your bowels in the next 2 days, please take milk of magnesia over the counter. Please follow the post op diet and do not advance your diet until you are seen in the office in about 2 weeks. Please walk around your home every hour or two to prevent blood clots from forming in your legs. You do not need to wake from sleeping to walk. Please sleep in a bed or couch to prevent kinking at the hips and knees. Please take your incentive spirometer (your lung crew chief) home with you and use it for the next few days to prevent pneumonias. You may shower, no hot tubs, baths or swimming pools. Please call the office with any questions or concerns such as increasing abdominal pain, fever, chills, shortness of breath, chest pain, leg pain or swelling, or redness or drainage from your incisions. Please stay on stage 3 diet which includes sugar free clear liquids such as ice pops and jello and broth and crystal light. Avoid all carbonation. Please drink 3 protein shakes with at least 25-30 grams of protein daily or 3 of the Celebrate 4:1 shakes which can be purchased in our office. The Celebrate shakes have all of the bariatric vitamins you need if you consume these shakes. If you are drinking other protein shakes, you will need to purchase the Celebrate multivitamins and calcium that we provide in the office (they will provide all the vitamins you need). Please make sure you are consuming at least 40-60 ounces of water in addition to your 3 protein shakes daily. Do not hesitate to contact the office with any questions at . The patient's medical history has been reviewed and they are considered low risk for post op DVT and therefore DVT prophylaxis is not considered necessary. Travel after surgery was reviewed. The patient has not disclosed any travel plans during the first 30 days after surgery and they have been advised that within the first 30 days after surgery any bus, plane, train or car travel over 2 hours in duration is contraindicated due to the possibility of developing blood clots from immobility. Any travel, needs to include periods of ambulation of 10 minutes in duration every 2 hours.? The patient was instructed to discuss any plans for travel during this period with their bariatric surgeon. Assessment: stable s/p laparoscopic sleeve gastrectomy Discharge Date/Time: 07/16/21 10:07
[2021-07-15] MEDS: Metoclopramide HCl 10 MG/2 ML VIAL IVPUSH (14:19)
[2021-07-15] MEDS: Famotidine/PF 20 MG/2 ML VIAL IVPUSH ×2 (14:20→20:54)
[2021-07-15 15:04] LABS: Hematocrit 37.3 % (37.0-47.0); Hemoglobin 12.1 g/dl (12.0-16.0)
[2021-07-15 15:20] LABS: Anion Gap 11 (12-20); Blood Urea Nitrogen 9 mg/dL (9-16); Calcium 9.5 mg/dL (8.4-10.2); Carbon Dioxide 28 mmol/L (22-29); Chloride 104 mmol/L (96-108); Creatinine Clr Calc Pharmacy 94.4; Estimated Glomerular Filt Rate > 60; Glucose Random 139 mg/dL (60-115); Potassium 3.9 mmol/L (3.3-5.1); Sodium 139 mmol/L (135-145)
[2021-07-15] MEDS: Labetalol HCL 200 MG TABLET 800 MG PO ×2 (15:25→23:01)
[2021-07-15] MEDS: ceFAZolin Sodium/Dextrose,Iso 2 GM/50 ML PIGGYBACK IV (17:45)
[2021-07-15] MEDS: ondansetron HCL 4 MG/2 ML VIAL IVPUSH (20:52)
[2021-07-15] MEDS: carBAMazepine ER 200 MG TAB.ER.12H 400 MG PO (21:02)
[2021-07-15] MEDS: Montelukast Sodium 10 MG TABLET PO (21:02)
[2021-07-15] MEDS: Prazosin HCL 1 MG CAPSULE 3 MG PO (21:02)
[2021-07-16] VITALS: BP 158/70; PULSE 85; RESP 18; TEMP 36.6; O2SAT 97
[2021-07-16] MEDS: Lactated Ringers 1,000 ML 100 ML IVCONT (03:45)
[2021-07-16 04:00] VITALS: BP 158/86; PULSE 86; RESP 18; TEMP 36.6; O2SAT 97
[2021-07-16] MEDS: ondansetron HCL 4 MG/2 ML VIAL IVPUSH (04:15)
[2021-07-16 06:44] LABS: MANUAL DIFF FLAG NO
[2021-07-16 06:58] LABS: Basophils Percent Auto 0.2 % (0-2); Eosinophils Percent Auto 0.2 % (0-4); Hemoglobin 11.1 g/dl (12.0-16.0); Imm Gran Abs Auto 0.03 X10*3/uL (0.00-0.03); Imm Gran Pct Auto 0.3 % (0.0-0.4); Lymphocytes Absolute Auto 3.8 X10*3/uL (1.2-4.9); Lymphocytes Percent Auto 36.1 % (20-40); Mean Corpuscular HGB Conc 32.6 g/dl (31.0-35.0); Mean Corpuscular Hemoglobin 29.2 pg (27.0-33.0); Mean Corpuscular Volume 89.5 fL (80.0-98.0); Mean Platelet Volume 10.2 fL (9.4-12.3); Monocytes Percent Auto 9.5 % (2-11); Neutrophils Absolute Auto 5.6 x10*3/uL (2.0-8.3); Neutrophils Percent Auto 53.7 % (45-73); Platelet Count 268 X10*3/uL (160-400); Red Cell Distribution Width 13.4 % (11.0-16.0); White Blood Count 10.4 X10*3/uL (4.8-10.8)
[2021-07-16 07:05] LABS: Anion Gap 12 (12-20); Blood Urea Nitrogen 9 mg/dL (9-16); Carbon Dioxide 28 mmol/L (22-29); Chloride 103 mmol/L (96-108); Creatinine Clr Calc Pharmacy 101.7; Estimated Glomerular Filt Rate > 60; Glucose Random 94 mg/dL (60-115); Potassium 3.5 mmol/L (3.3-5.1); Sodium 139 mmol/L (135-145)
[2021-07-16] MEDS: Fluticasone Propionate 100 MCG BLST.W.DEV 1 PUFF INHALE (07:47)
[2021-07-16 07:49] VITALS: PULSE 80; RESP 16; O2SAT 99
[2021-07-16 08:00] VITALS: BP 144/75; PULSE 74; RESP 18; TEMP 37.4; O2SAT 97
--- NOTE | 2021-07-16 14:13 | HO.POSTANES ---
Post Anesthesia Evaluation Post Anesthesia Evaluation Vital Signs: Vital Signs Temp Pulse Resp BP Pulse Ox 07/16/21 08:00 99.4 F 74 18 144/75 H 97 07/16/21 07:49 80 16 07/16/21 04:00 97.8 F 86 18 158/86 H 97 Anesthesia: General Endotracheal-GETA Mental Status: Awake Pain Control: Satisfactory Nausea/Vomiting: None Hydration: Adequate Anesthesia-Related Issues: No Anes. Related Issues
== END 2021-07-16 10:07 | disposition home or self-care (01) | DRG 403 ==
LOC: HO.SSSA 13:54 → HO.S3 17:09
PROVIDERS: Physician Assistant Surgical; Admitting Provider Surgery; PCP Internal Medicine; Visit Provider Surgery
PROC: 0DB64Z3 Excision of Stomach, Percutaneous Endoscopic Approach, Vertical (ICD-10-PCS; CPT 43845; principal; 2021-07-15 10:10)
DX: E66.01 Morbid (severe) obesity due to excess calories (principal); E78.5 Hyperlipidemia, unspecified; I69.812 Visuospatial deficit and spatial neglect following other cerebrovascular disease; F41.9 Anxiety disorder, unspecified; F32.A Depression, unspecified; K21.9 Gastro-esophageal reflux disease without esophagitis; J45.909 Unspecified asthma, uncomplicated; F43.10 Post-traumatic stress disorder, unspecified; G47.33 Obstructive sleep apnea (adult) (pediatric); Z68.41 Body mass index [BMI] 40.0-44.9, adult; Z20.822 Contact with and (suspected) exposure to COVID-19; Z79.51 Long term (current) use of inhaled steroids; Z79.82 Long term (current) use of aspirin; Z79.899 Other long term (current) drug therapy
CPT/HCPCS: 36415; 80048; 80053; 80061; 83036; 83525; 84443; 85014; 85018; 85025; 85610; 85730; 86140; 86850; 86900; 86901; 87635; 88307; 88342; 94640; 99024; A4649; C9088; J0131; J0690; J1100; J1170; J2250; J2370; J2405; J2550; J2765; J3010

== ENCOUNTER → 2021-07-22 14:27 | Outpatient (BNVA) | payer OTHER, SELFPAY | PROVIDERS: PCP Internal Medicine; Referring Provider Internal Medicine; Visit Provider Surgery | DX: Z13.89 Encounter for screening for other disorder (principal) ==

== ENCOUNTER → 2021-08-25 08:44 | Outpatient (BNVA) | payer OTHER, SELFPAY | PROVIDERS: PCP Internal Medicine; Referring Provider Internal Medicine; Visit Provider Physician Assistant | DX: Z98.84 Bariatric surgery status (principal) | CPT/HCPCS: 99212 ==

== ENCOUNTER 2021-10-02 20:50 | Observation (INO) | payer OTHER, SELFPAY ==
--- NOTE | ~2021-10-02 | CT_ITS ---
EXAMINATION: CT head/brain wo con CLINICAL INFORMATION: Reason for Exam cva/tia right sided weakness COMPARISON: None. TECHNIQUE: Contiguous axial imaging was performed from the skull base to vertex without intravenous contrast. Sagittal and coronal reformatted images were obtained. This CT examination was performed using dose optimization techniques as appropriate, variously including the following: * Automated exposure control * Adjustment of mA and/or kV according to patient size (this includes techniques or standardized protocols for targeted exams where dose is matched to indication/reason for exam; i.e. extremities or head) Use of iterative reconstruction technique DLP: 686 mGy-cm FINDINGS: No acute osseous or soft tissue abnormality. The mastoid air cells and visualized portions of the paranasal sinuses are well aerated. There is no evidence of acute intracranial hemorrhage or territorial infarction. No abnormal mass effect or midline shift is seen. Diaz to white matter differentiation is well preserved. Prominence of the subarachnoid space along the medial aspect of the left temporal lobe may reflect a small arachnoid cyst No hydrocephalus. No significant volume loss. Patchy periventricular and deep white matter hypoattenuation is consistent with mild small vessel ischemic changes. CT/CT head/brain wo con IMPRESSION: No acute intracranial abnormality including hemorrhage, mass effect, hydrocephalus, or acute territorial edematous infarction.
[2021-10-02 21:00] VITALS: BP 141/78; PULSE 98; O2SAT 98
[2021-10-02 21:13] VITALS: BMI 34.7
--- NOTE | 2021-10-02 21:20 | ED.SEIZURE ---
HPI - Seizure General Chief Complaint: Seizure Stated Complaint: seizure Time Seen by Provider: 10/02/21 21:19 History of Present Illness HPI Narrative: Patient is a 51-year-old female status post gastric sleeve procedure history of GERD history of TIA, hypertension, hyperlipidemia question history of seizures is on Tegretol. Patient unsure of the type of seizure she normally gets. The last seizure was in june. Patient is set at the time she was confused. However she was awake at the time. Today she had an episode where patient felt her speech was not coming out right. Also have right arm weakness. She feels the arm was clumsy. That resolved after approximately 15 minutes. Positive history of hypertension, high cholesterol. Never had a heart attack before. Positive history TIAs in the past. No diabetes. No MT. gastric sleeve procedure was done in April. Patient from home. Related Data Home Medications Medication Instructions Recorded Confirmed albuterol sulfate 90 mcg/actuation 2 puff inhalation QID PRN cough 04/07/21 08/25/21 aerosol inhaler (ProAir HFA) aripiprazole 5 mg tablet 5 mg PO DAILY 04/07/21 08/25/21 atorvastatin 40 mg tablet 40 mg PO BEDTIME 04/07/21 08/25/21 carbamazepine 300 mg 300 mg PO BID 04/07/21 08/25/21 capsule,extended release [id number] clonazepam 0.5 mg tablet 0.5 mg PO DAILY PRN anxiety 04/07/21 08/25/21 docusate sodium 100 mg capsule 100 mg PO BID 04/07/21 08/25/21 escitalopram oxalate 10 mg tablet 30 mg PO DAILY 04/07/21 08/25/21 fluticasone propionate 110 1 inh inhalation DAILY 04/07/21 08/25/21 mcg/actuation HFA aerosol inhaler (Flovent HFA) montelukast 10 mg tablet 10 mg PO BEDTIME 04/07/21 08/25/21 nifedipine 90 mg tablet,extended 90 mg PO DAILY 04/07/21 08/25/21 release prazosin 1 mg capsule 3 mg PO BEDTIME 04/07/21 08/25/21 sennosides 8.6 mg tablet (senna) 8.6 mg PO BID 04/07/21 08/25/21 hydroxyzine HCl 50 mg tablet 1 tab PO TID 07/15/21 08/25/21 Previous Rx's Medication Instructions Recorded pantoprazole 40 mg tablet,delayed 40 mg PO DAILY #30 tabs 07/09/21 release sucralfate 100 mg/mL oral 10 ml PO BID #400 mL 07/09/21 suspension labetalol 200 mg tablet 800 mg PO TID #0 tabs 07/15/21 Allergies Allergy/AdvReac Type Severity Reaction Status Date / Time Seasonal Allergies Allergy Mild itchy Verified 09/23/21 09:04 eyes, runny nose Review of Systems Review of Systems: No coughing or congestion or upper respiratory symptoms No diaphoresis All system reviewed otherwise negative Yes all other systems are reviewed and are negative [facility] Past Medical History Attestation statement: The following information was validated with the patient. Medical History Anxiety Asthma Binge eating disorder CVA (cerebral vascular accident) Depression H. pylori infection Hyperlipidemia Hypertension Insomnia Morbid obesity Post traumatic stress disorder (PTSD) Seizure Sleep apnea with use of continuous positive airway pressure (CPAP) Surgical History Hx of colonoscopy Hx of wisdom tooth extraction Family History Family History Mother Diabetes Brother No problems noted. Social History Social History Household Members: Family Household Members Other:: mother Housing: House Are you a primary primary care coordinator to a significant other at home: No Do you presently have visiting nurse or other home services: No Alcohol intake: current Alcohol intake frequency: does not drink Patient Tobacco Use Status: Never used Tobacco Advance Directives: No Advance Directives Information Provided: No Physical Exam Vital Signs: Vital Signs: BMI result Body Mass Index 34.7 Appearance: Alert. Oriented X3. No acute distress. Eyes: Pupils equal, round and reactive to light. ENT: Pharynx normal. Neck: Normal inspection. Neck supple. No lymph nodes noted. No crepitus CVS: Normal heart rate and rhythm. Pulses normal. Normal S1 and S2 Respiratory: No respiratory distress. Breath sounds normal. No Wheezing. No rales Abdomen: Soft and nontender. No rigidity. No distention. good BS x4 Skin: Skin warm and dry. Normal skin color. Normal skin turgor. Extremities: No lower extremity edema. Neurovascular intact to all extremities. No Lacerations. No Rash Neuro: Oriented X 3. No motor deficit. No sensory deficit. Moving all extermities. No slurred speech NIH Stroke Scale Internal: Initial- Upon Arrival Time: 21:40 Level of Consciousness: Alert Level of Consciousness Questions: Answers both questions correctly Level of Consciousness Commands: Performs both tasks correctly Best Gaze: Normal Visual: No visual loss Facial Palsy: Normal Motor Arm (Right): No drift Motor Arm (Left): No drift Motor Leg (Right): No drift Motor Leg (Left): No drift Limb Ataxia: Absent Sensory: Normal Best Language: No aphasia Dysarthia: Normal Extinction and Inattention: No abnormality Score: 0 MDM - Seizure MDM Narrative Medical decision making narrative: Question TIA as patient had change in speech and also right upper extremity clumsiness. Does have multiple risk factor and also had a previous TIA in the past. CT scan and labs ordered. Will monitor carefully. Patient to be admitted for further evaluation. Patient's EKG showed a sinus pattern heart rate is 90 positive LVH there is nonspecific T-wave inversions over the inferior leads. Given patient's symptoms of change speech and right upper extremity clumsiness history of TIA will admit for further evaluation. CT scan of the head was negative for any acute evidence of bleeding. Patient is neurologically back to baseline. NIH stroke scale is 0. Medical Records Attestation: I reviewed the patient's medical records. Lab Data Attestation: I reviewed the patient's lab results. Result diagrams: 10/02/21 21:57 10/02/21 21:57 Labs: Lab Results 10/02/21 10/02/21 10/02/21 Range/Units 21:57 21:57 21:57 WBC 6.6 (4.8-10.8) X10*3/uL RBC 4.17 L (4.20-5.50) X10*6/uL Hgb 12.1 (12.0-16.0) g/dl Hct 37.0 (37.0-47.0) % MCV 88.7 (80.0-98.0) fL MCH 29.0 (27.0-33.0) pg MCHC 32.7 (31.0-35.0) g/dl RDW 14.3 (11.0-16.0) % Plt Count 265 (160-400) X10*3/uL MPV 10.8 (9.4-12.3) fL Immature Gran % (Auto) 0.2 (0.0-0.4) % Neut % (Auto) 52.6 (45-73) % Lymph % (Auto) 34.0 (20-40) % [place] % (Auto) 9.1 (2-11) % Eos % (Auto) 3.8 (0-4) % Baso % (Auto) 0.3 (0-2) % Lymph # (Auto) 2.3 (1.2-4.9) X10*3/uL [place] # (Auto) 0.6 (0.1-1.2) X10*3/uL Eos # (Auto) 0.3 (0.0-0.4) X10*3/uL Baso # (Auto) 0.0 (0.0-0.2) X10*3/uL Abs Immat Gran (auto) 0.01 (0.00-0.03) X10*3/uL Absolute Neuts (auto) 3.5 (2.0-8.3) x10*3/uL Absolute Nucleated RBC 0.000 (0.0-0.012) X10*3/uL Nucleated RBC % (auto) 0.0 (0.0-0.2) /100WBC PT 12.9 (10.0-13.1) SEC INR 1.1 (0.9-1.1) Sodium 145 (135-145) mmol/L Potassium 2.8 L (3.3-5.1) mmol/L Chloride 104 (96-108) mmol/L Carbon Dioxide 27 (22-29) mmol/L Anion Gap 17 (12-20) BUN 13 (9-16) mg/dL Creatinine 0.82 (0.5-1.4) mg/dL Estim Creat Clear Calc 85.9 Estimated GFR > 60 Random Glucose 94 (60-115) mg/dL Calcium 9.1 (8.4-10.2) mg/dL Carbamazepine 5.0 (5.0-12.0) mcg/mL COVID-19 (SOFIA) (Negative) COVID-19 Clin Com 10/02/21 Range/Units 21:57 WBC (4.8-10.8) X10*3/uL RBC (4.20-5.50) X10*6/uL Hgb (12.0-16.0) g/dl Hct (37.0-47.0) % MCV (80.0-98.0) fL MCH (27.0-33.0) pg MCHC (31.0-35.0) g/dl RDW (11.0-16.0) % Plt Count (160-400) X10*3/uL MPV (9.4-12.3) fL Immature Gran % (Auto) (0.0-0.4) % Neut % (Auto) (45-73) % Lymph % (Auto) (20-40) % [place] % (Auto) (2-11) % Eos % (Auto) (0-4) % Baso % (Auto) (0-2) % Lymph # (Auto) (1.2-4.9) X10*3/uL [place] # (Auto) (0.1-1.2) X10*3/uL Eos # (Auto) (0.0-0.4) X10*3/uL Baso # (Auto) (0.0-0.2) X10*3/uL Abs Immat Gran (auto) (0.00-0.03) X10*3/uL Absolute Neuts (auto) (2.0-8.3) x10*3/uL Absolute Nucleated RBC (0.0-0.012) X10*3/uL Nucleated RBC % (auto) (0.0-0.2) /100WBC PT (10.0-13.1) SEC INR (0.9-1.1) Sodium (135-145) mmol/L Potassium (3.3-5.1) mmol/L Chloride (96-108) mmol/L Carbon Dioxide (22-29) mmol/L Anion Gap (12-20) BUN (9-16) mg/dL Creatinine (0.5-1.4) mg/dL Estim Creat Clear Calc Estimated GFR Random Glucose (60-115) mg/dL Calcium (8.4-10.2) mg/dL Carbamazepine (5.0-12.0) mcg/mL COVID-19 (SOFIA) Negative (Negative) COVID-19 Clin Com See Note Discharge Plan Discharge Clinical Impression: Brain TIA, Hypokalemia Patient Disposition: Admitted As Inpatient Prescriptions: No Action hydroxyzine HCl 50 mg tablet 1 tab PO TID labetalol 200 mg tablet 800 mg PO TID Qty: 0 0RF Label Comments: PATIENT ONLY TOOK 400MG THIS AM Rx Instructions: be sure to check blood pressure daily and communicate number with Dr Sykes carbamazepine 300 mg capsule, ER multiphase 12 hr 300 mg PO BID Label Comments: with 100 mg BID aripiprazole 5 mg tablet 5 mg PO DAILY docusate sodium 100 mg capsule 100 mg PO BID atorvastatin 40 mg tablet 40 mg PO BEDTIME sennosides [senna] 8.6 mg tablet 8.6 mg PO BID montelukast 10 mg tablet 10 mg PO BEDTIME nifedipine 90 mg tablet extended release 90 mg PO DAILY escitalopram oxalate 10 mg tablet 30 mg PO DAILY Flovent HFA 110 mcg/actuation HFA aerosol inhaler 1 inh inhalation DAILY clonazepam 0.5 mg tablet 0.5 mg PO DAILY PRN (Reason: anxiety) prazosin 1 mg capsule 3 mg PO BEDTIME albuterol sulfate [ProAir HFA] 90 mcg/actuation HFA aerosol inhaler 2 puff inhalation QID PRN (Reason: cough) pantoprazole 40 mg tablet,delayed release (DR/EC) 40 mg PO DAILY Qty: 30 2RF sucralfate 100 mg/mL suspension 10 ml PO BID Qty: 400 2RF
--- NOTE | 2021-10-02 21:34 | ECG_ITS ---
Test Reason : TIA Blood Pressure : / mmHG Vent. Rate : 087 BPM Atrial Rate : 087 BPM P-R Int : 166 ms QRS Dur : 088 ms QT Int : 380 ms P-R-T Axes : 118 182 161 degrees QTc Int : 457 ms Suspect limb lead reversal, interpretation assumes no reversal Normal sinus rhythm Minimal voltage criteria for LVH, may be normal variant ( Sokolow-Simms ) Lateral infarct , age undetermined Abnormal ECG When compared with ECG of 05-MAY-2021 10:08, QRS axis Shifted left Lateral infarct is now Present T wave inversion less evident in Lateral leads Referred By: Rosalia Delarosa Electronically Signed By:
[2021-10-02 22:03] LABS: MANUAL DIFF FLAG NO
[2021-10-02 22:05] LABS: Basophils Percent Auto 0.3 % (0-2); Eosinophils Absolute Auto 0.3 X10*3/uL (0.0-0.4); Eosinophils Percent Auto 3.8 % (0-4); Hemoglobin 12.1 g/dl (12.0-16.0); Imm Gran Abs Auto 0.01 X10*3/uL (0.00-0.03); Imm Gran Pct Auto 0.2 % (0.0-0.4); Lymphocytes Absolute Auto 2.3 X10*3/uL (1.2-4.9); Mean Corpuscular HGB Conc 32.7 g/dl (31.0-35.0); Mean Corpuscular Volume 88.7 fL (80.0-98.0); Mean Platelet Volume 10.8 fL (9.4-12.3); Monocytes Absolute Auto 0.6 X10*3/uL (0.1-1.2); Monocytes Percent Auto 9.1 % (2-11); Neutrophils Absolute Auto 3.5 x10*3/uL (2.0-8.3); Neutrophils Percent Auto 52.6 % (45-73); Platelet Count 265 X10*3/uL (160-400); Red Blood Count 4.17 X10*6/uL (4.20-5.50); Red Cell Distribution Width 14.3 % (11.0-16.0); White Blood Count 6.6 X10*3/uL (4.8-10.8)
[2021-10-02 22:17] LABS: Anion Gap 17 (12-20); Blood Urea Nitrogen 13 mg/dL (9-16); Calcium 9.1 mg/dL (8.4-10.2); Carbon Dioxide 27 mmol/L (22-29); Chloride 104 mmol/L (96-108); Creatinine Clr Calc Pharmacy 85.9; Estimated Glomerular Filt Rate > 60; Glucose Random 94 mg/dL (60-115); Potassium 2.8 mmol/L (3.3-5.1); Sodium 145 mmol/L (135-145)
[2021-10-02 22:20] LABS: INTERNATIONAL NORM RATIO 1.1 (0.9-1.1); Prothrombin Time 12.9 SEC (10.0-13.1)
[2021-10-02 22:37] LABS: COVID-19 Test Negative (Negative); IDNOW Serial# 55D5AD1C
[2021-10-02] MEDS: KCl 40 mEq in 0.9 % Sodium Chl 40 MEQ/1,000 ML IV.SOLN 250 MEQ IV (23:35)
[2021-10-02] MEDS: Potassium Chloride Packet 20 MEQ PACKET 40 MEQ PO (23:36)
--- NOTE | 2021-10-02 23:59 | P.HPHOSP_ITS ---
History of Present Illness Date of Service: 10/02/21 Chief Complaint: speech difficulty 51-year-old female with a past medical history of hypertension, hyperlipidemia, CVA, asthma, anxiety, GERD, depression, seizure, sleep apnea, obesity presented to the hospital today with a chief complaint of disorientation. Patient reports that she was at work and had brief episode of disorientation on unable to speak. Symptoms lasted for about 15 minutes. Presented to the ER for further evaluation. Patient denies any lightheadedness dizziness. Denies any chest pain or palpitations. Denies any numbness tingling or focal weakness. Patient reports that she had history of seizures and when she had a typical seizure she feels disoriented. Denies any recent history of seizures. Reports she has been complaint with her home medications. Denies any GI symptoms. Review of all other systems is negative except mentioned above ER course: Per ER team patient exam was nonfocal; CT head showed no acute findings; EKG was nonischemic; on labs noted to have low potassium. Repeated. Admitted to the hospital for further evaluation. [facility] Medical History Anxiety Asthma Binge eating disorder CVA (cerebral vascular accident) Depression H. pylori infection Hyperlipidemia Hypertension Insomnia Morbid obesity Post traumatic stress disorder (PTSD) Seizure Sleep apnea with use of continuous positive airway pressure (CPAP) Family History Mother Diabetes Brother No problems noted. Surgical History Hx of colonoscopy Hx of wisdom tooth extraction Social History Household Members: Family Household Members Other:: mother Housing: House Are you a primary caretaker resort to a significant other at home: No Do you presently have visiting nurse or other home services: No Alcohol intake: current Alcohol intake frequency: does not drink Patient Tobacco Use Status: Never used Tobacco Advance Directives: No Advance Directives Information Provided: No service: No Current occupational status: employed Meds Allergies Allergy/AdvReac Type Severity Reaction Status Date / Time Seasonal Allergies Allergy Mild itchy Verified 09/23/21 09:04 eyes, runny nose Active Medications: Current Medications Potassium Chloride/Sodium Chloride () 40 meq in 1,000 mls @ 250 mls/hr IV .Q4H DAMON Stop: 10/03/21 02:29 Last Admin: 10/02/21 23:35 Dose: 250 mls/hr Home Medications Medication Instructions Recorded Confirmed Last Taken Type aripiprazole 5 mg tablet 1 tab PO DAILY 10/03/21 10/03/21 Unknown History atorvastatin 40 mg tablet 1 tab PO DAILY 10/03/21 10/03/21 Unknown History carbamazepine 100 mg 1 cap PO BID 10/03/21 10/03/21 Unknown History capsule,extended release [id number] carbamazepine 300 mg 1 cap PO BID 10/03/21 10/03/21 Unknown History capsule,extended release [id number] clonazepam 0.5 mg tablet 1 tab PO DAILY PRN Anxiety 10/03/21 10/03/21 Unknown History docusate sodium 100 mg capsule 1 cap PO BID 10/03/21 10/03/21 Unknown History escitalopram oxalate 10 mg tablet 1 tab PO DAILY 10/03/21 10/03/21 Unknown History escitalopram oxalate 20 mg tablet 1 tab PO DAILY 10/03/21 10/03/21 Unknown History fluticasone propionate 110 1 puff PO BID 10/03/21 10/03/21 Unknown History mcg/actuation HFA aerosol inhaler (Flovent HFA) hydroxyzine HCl 50 mg tablet 1 tab PO TID PRN anxiety 10/03/21 10/03/21 Unknown History montelukast 10 mg tablet 1 tab PO BEDTIME 10/03/21 10/03/21 Unknown History nifedipine 90 mg tablet,extended 1 tab PO DAILY 10/03/21 10/03/21 Unknown History release pantoprazole 40 mg tablet,delayed 1 tab PO DAILY 10/03/21 10/03/21 Unknown History release prazosin 1 mg capsule 3 mg PO BEDTIME PRN Nightmares 10/03/21 10/03/21 Unknown History Physical Exam Vital Signs and Narrative: Vital Signs: BMI result Body Mass Index 34.7 Gen: Appears be in no acute distress HEENT: NCAT, Moist mucosa. Pulmonary: Vesicular breath sounds, fair air entry CVS: Normal S1-S2 Abdomen: BS+, Soft, Nontender Extremities: Warm well perfused Neuro: Alert and awake. grossly nonfocal. Speech is clear. Tongue is midline. Cranial nerves intact. Sensations equal bilaterally. Strength 5/5 throughout. Results Labs CBC and Chem 7: 10/03/21 05:41 10/03/21 05:41 Labs: Laboratory Results - last 24 hr 10/02/21 10/02/21 10/02/21 21:57 21:57 21:57 MCV 88.7 MCH 29.0 MCHC 32.7 RDW 14.3 Plt Count 265 MPV 10.8 Immature Gran % (Auto) 0.2 Neut % (Auto) 52.6 Lymph % (Auto) 34.0 [place] % (Auto) 9.1 Eos % (Auto) 3.8 Baso % (Auto) 0.3 Lymph # (Auto) 2.3 [place] # (Auto) 0.6 Eos # (Auto) 0.3 Baso # (Auto) 0.0 Abs Immat Gran (auto) 0.01 Absolute Neuts (auto) 3.5 Absolute Nucleated RBC 0.000 Nucleated RBC % (auto) 0.0 PT 12.9 INR 1.1 Anion Gap 17 Estim Creat Clear Calc 85.9 Estimated GFR > 60 Random Glucose 94 Calcium 9.1 Carbamazepine 5.0 COVID-19 (SOFIA) COVID-19 Clin Com 10/02/21 21:57 MCV MCH MCHC RDW Plt Count MPV Immature Gran % (Auto) Neut % (Auto) Lymph % (Auto) [place] % (Auto) Eos % (Auto) Baso % (Auto) Lymph # (Auto) [place] # (Auto) Eos # (Auto) Baso # (Auto) Abs Immat Gran (auto) Absolute Neuts (auto) Absolute Nucleated RBC Nucleated RBC % (auto) PT INR Anion Gap Estim Creat Clear Calc Estimated GFR Random Glucose Calcium Carbamazepine COVID-19 (SOFIA) Negative COVID-19 Clin Com See Note Imaging Radiologist's Impressions: Impressions Head CT 10/02/21 23:20 IMPRESSION: No acute intracranial abnormality including hemorrhage, mass effect, hydrocephalus, or acute territorial edematous infarction. Assessment and Plan (1) Brain TIA: Status: Acute Plan 51-year-old female with a past medical history of hypertension, hyperlipidemia, GERD, anxiety, depression, obesity, history of CVA, seizure disorder presented to the hospital after being found disoriented/ speech difficulty briefly. Symptoms resolved. Admitted for possible TIA. TIA: Patient presented with brief disorientation/speech difficulty. symptoms currently resolved. Exam nonfocal. CT head showed acute findings. EKG nonischemic, troponins diarrhea Telemetry Speech and swallow eval/PT/ OT Neurology consult Echocardiogram hypokalemia: Repleted in the ER. history of hypertension: Hold home nifedipine for now. History of seizures: Continue home carbamazepine History of CVA: Continue home aspirin / statin History of anxiety / depression: Continue home aripiprazole/ clonazepam/ escitalopram DVT prophylaxis: SCD boots Code status: Full code Quality Stroke Does the patient have a stroke diagnosis?: No VTE Prior VTE?: No VTE Risk Level:: Medical - moderate - high VTE Device Contraindication: N/A - Device Ordered VTE Drug Contraindication: Treatment Not Indicated
[2021-10-03 00:17] VITALS: BP 160/103; PULSE 81; RESP 18; O2SAT 98
[2021-10-03 04:10] VITALS: BP 154/87; PULSE 78; RESP 18; O2SAT 98
[2021-10-03 06:11] LABS: MANUAL DIFF FLAG NO
[2021-10-03 06:15] LABS: Basophils Percent Auto 0.4 % (0-2); Eosinophils Absolute Auto 0.2 X10*3/uL (0.0-0.4); Eosinophils Percent Auto 2.1 % (0-4); Hematocrit 32.2 % (37.0-47.0); Hemoglobin 10.5 g/dl (12.0-16.0); Imm Gran Abs Auto 0.01 X10*3/uL (0.00-0.03); Imm Gran Pct Auto 0.1 % (0.0-0.4); Lymphocytes Absolute Auto 3.2 X10*3/uL (1.2-4.9); Lymphocytes Percent Auto 41.5 % (20-40); Mean Corpuscular HGB Conc 32.6 g/dl (31.0-35.0); Mean Corpuscular Hemoglobin 29.2 pg (27.0-33.0); Mean Corpuscular Volume 89.7 fL (80.0-98.0); Mean Platelet Volume 11.3 fL (9.4-12.3); Monocytes Absolute Auto 0.6 X10*3/uL (0.1-1.2); Monocytes Percent Auto 8.3 % (2-11); Neutrophils Absolute Auto 3.6 x10*3/uL (2.0-8.3); Neutrophils Percent Auto 47.6 % (45-73); Platelet Count 243 X10*3/uL (160-400); Red Blood Count 3.59 X10*6/uL (4.20-5.50); Red Cell Distribution Width 14.4 % (11.0-16.0); White Blood Count 7.6 X10*3/uL (4.8-10.8)
[2021-10-03 06:41] LABS: Cholesterol 134 mg/dL; HDL Cholesterol 29 mg/dL; LDL Cholesterol Calculated 87 mg/dl; Triglycerides 91 mg/dL
[2021-10-03 06:45] LABS: Anion Gap 14 (12-20); Blood Urea Nitrogen 11 mg/dL (9-16); Carbon Dioxide 23 mmol/L (22-29); Chloride 108 mmol/L (96-108); Creatinine Clr Calc Pharmacy 106.7; Estimated Glomerular Filt Rate > 60; Glucose Random 74 mg/dL (60-115); Potassium 3.3 mmol/L (3.3-5.1); Sodium 142 mmol/L (135-145)
--- NOTE | 2021-10-03 07:00 | CA_ITS ---
Transthoracic Echocardiogram Amended Patient (Last, First, Middle): Stephanie Klein N Gender: Female Date of : 1970 Age: 51 Procedure Date: 10/03/2021 Procedure Type: Transthoracic Echocardiogram Location: ER Height: 160.02 cm Weight: 88.91 kg BSA: 1.92 m2 Heart Rate: 75 bpm BP: 154 / 87 mmHg Aviation Manager: MECHELLE Referring MD: Freddie English MD [employer] Vehicle Operator: Shaquille Escamilla MD Symptoms: tia Study Quality: Adequate ECG Rhythm: Sinus Conclusions: - Essentially normal study Findings Left Ventricle Normal left ventricular size, thickness, and systolic function. The visually estimated ejection fraction is between 60-65%. Spectral Doppler is indicative of a normal filling pattern. Peak GLS is -18.8%, within normal limits. Right Ventricle Normal right ventricular cavity size and systolic function. Atria Both atria are normal in size. Interatrial shunt cannot be excluded. Aortic Valve Normal aortic valve structure and function. There is no aortic valve stenosis. There is no aortic valve regurgitation. Mitral Valve Normal mitral valve structure and function. There is trace mitral valve regurgitation. There is no mitral valve stenosis. Pulmonic Valve The pulmonic valve is likely normal. Tricuspid Valve Normal tricuspid valve structure. Tricuspid regurgitation envelope is inadequate for calculation of right ventricular systolic pressure. Great Vessels All visible segments of the aorta are normal in size. The pulmonary artery was not well visualized. Venous The inferior vena cava is normal in size. Pericardium/Pleural There is no evidence of pericardial effusion. Prior Study Comparison No prior study available for comparison. Recommendations, Care & Conclusions Consider a EDWARD if clinically appropriate. Recommend contrast study to evaluate intracardiac shunting. Measurements 2D Linear Measurements IVSd: 0.95 0.6-0.9/0.6-1.0 cm LVIDd: 4.82 3.9-5.3/4.2-5.9 cm LVIDd Index: 2.51 2.4-3.2/2.2-3.1 cm/m2 LVIDs: 3.13 2.0-3.6 cm LVPWd: 1.02 0.7-1.1 cm LA Diam: 3.20 2.7-3.8/3.0-4.0 cm LAIDs Index: 1.67 1.5-2.3 cm/m2 LV Mass: 208.82 67-162/88-224 g LV Mass Index: 108.76 43-95/49-115 g/m2 LVOT Diam: 2.10 3.0+(-)1.3 cm 2D Volumes LA Vol: 15.90 2D Systolic Function EF 4C: 62.30 >55% EF 2C: 63.10 >55% EF BiP: 61.30 >55% Mitral Valve MV Pk E: 0.92 MV PK A: 0.77 MV Decel Time: 193.00 E/A: 1.20 E'Lateral: 11.40 E'Medial: 6.20 E/E' Med: 14.90 E/E' Lat: 8.10 PHT: 56.00 MVA PHT: 3.93 Decel Johnson: 4.80 Aortic Valve AoV Pk Luis Felipe: 1.49 AoV Mn Luis Felipe: 1.11 AoV VTI: 0.30 AoV Pk Grad: 9.00 Aov Mn Grad: 5.00 PAULINE Cont.VTI: 2.88 LVOT LVOT Pk Luis Felipe: 1.41 LVOT Mn Luis Felipe: 0.91 LVOT VTI: 0.25 LVOT Pk Grad: 8.00 LVOT Mn Grad: 4.00 LVOT Diam: 2.10 LVOT Area: 3.46 Diastolic Function MV Pk E: 0.92 MV Pk A: 0.77 E/A: 1.20 E'Medial: 6.20 E/E' Med: 14.90 E' Laterial: 11.40 E/E' Lat: 8.10 Right Ventricle TAPSE (mm): 16.60 TVS' Luis Felipe: 11.60 Great Vessels Aorta Sinus of Valsalva: 2.90 2.0-3.5 cm Ao Asc: 3.70 2.1-3.4 cm Pulmonary Veins Pulm Vein S/D 1.10 Pulmonary Valve PV Pk Luis Felipe: 0.78 Peak PV Grad: 2.00 Updated in Other Vendor System with Status of Final Shaquille Escamilla MD electronically signed on 10/03/2021 3:08:30 PM with status of Final
[2021-10-03 07:21] VITALS: BP 154/87; PULSE 78; O2SAT 98
[2021-10-03 09:10] LABS: Magnesium 1.6 mg/dL (1.6-2.6)
--- NOTE | 2021-10-03 09:16 | PHA.MEDREC ---
Pharmacy Consult ? Medication Reconciliation Pharmacy has completed the medication reconciliation. Patient reported all medications. She is no longer taking aspirin due to getting a gastric sleeve. Sandie Osman, PharmD
[2021-10-03] MEDS: 0.9 % Sodium Chloride Flush 3 ML SYRINGE IVFLUSH (09:30)
--- NOTE | 2021-10-03 11:25 | MHC.CM.PN ---
Met with patient in regards to discharge planning. Patient lives with her mother, ambulates independently and had no services prior to coming to the hospital. No services anticipated to be needed because patient is not homebound. PCP verified. Copy of HCP obtained from [facility]. Patient received 1 J&J vaccine and 2 Moderna boosters. Obs notice explained and signed. Patient's mother will transport her home when medically stable. Continue to monitor for d/c needs.
[2021-10-03 11:26] VITALS: BP 167/86; PULSE 67; RESP 18; O2SAT 99
[2021-10-03] MEDS: Escitalopram Oxalate 20 MG TABLET PO (12:29)
[2021-10-03] MEDS: Escitalopram Oxalate 10 MG TABLET PO (12:29)
[2021-10-03] MEDS: ARIPiprazole 5 MG TABLET PO (12:30)
[2021-10-03] MEDS: Atorvastatin Calcium 40 MG TABLET PO (12:30)
--- NOTE | 2021-10-03 12:49 | P.CNNE_ITS ---
History of Present Illness Data of Consult Service Date: 10/03/21 Primary Care Provider: Unknown Physician HPI Reason for consult: Seizure do 51 years old woman with underlying history of obesity status post bariatric surgery, hypertension, which she probably was not taking good care of, and probably complex partial seizure disorder. She said that in the past she had a stroke and also seizures. She was seeing neurologist in [facility] and recently her seizure medicine was changed. She could not tell me what seizure medicine she was taking at this time. She reported having sporadic seizure-like spell with which typically would create dizziness disorientation and not able to communicate or talk for few minutes. One of these episodes brought her to emergency room. She said that prior to this, last episode was few weeks ago. Review of Systems Review of Systems: No recent cold or flu-like illness or trauma or exposure to new chemical. [facility] Past Medical History Medical History Anxiety Asthma Binge eating disorder CVA (cerebral vascular accident) Depression H. pylori infection Hyperlipidemia Hypertension Insomnia Morbid obesity Post traumatic stress disorder (PTSD) Seizure Sleep apnea with use of continuous positive airway pressure (CPAP) Family History Family History Mother Diabetes Brother No problems noted. Surgical History Surgical History Hx of colonoscopy Hx of wisdom tooth extraction Social History Social History Household Members: Family Household Members Other:: mother Housing: House Are you a primary care aid to a significant other at home: No Do you presently have visiting nurse or other home services: No Alcohol intake: current Alcohol intake frequency: does not drink Patient Tobacco Use Status: Never used Tobacco Advance Directives: No Advance Directives Information Provided: No service: No Current occupational status: employed Meds Allergies Allergy/AdvReac Type Severity Reaction Status Date / Time Seasonal Allergies Allergy Mild itchy Verified 09/23/21 09:04 eyes, runny nose Active Medications: Current Medications Acetaminophen (Acetaminophen 325 Mg Tablet) 650 mg PO Q6H PRN PRN Reason: Pain, Mild (Pain Scale 1-3) Aripiprazole (Aripiprazole 5 Mg Tablet) 5 mg PO DAILY [facility]ON Last Admin: 10/03/21 12:30 Dose: 5 mg Atorvastatin Calcium (Atorvastatin Calcium 40 Mg Tablet) 40 mg PO DAILY REPLACED BY [facility] Last Admin: 10/03/21 12:30 Dose: 40 mg Carbamazepine (Carbamazepine 200 Mg Tablet) 400 mg PO BID REPLACED BY [facility] Clonazepam (Clonazepam 0.5 Mg Tablet) 0.5 mg PO DAILY PRN PRN Reason: Anxiety Docusate Sodium (Docusate Sodium 100 Mg Capsule) 100 mg PO BID REPLACED BY [facility] Escitalopram Oxalate (Escitalopram Oxalate 10 Mg Tablet) 10 mg PO DAILY REPLACED BY [facility] Last Admin: 10/03/21 12:29 Dose: 10 mg Escitalopram Oxalate (Escitalopram Oxalate 20 Mg Tablet) 20 mg PO DAILY REPLACED BY [facility] Last Admin: 10/03/21 12:29 Dose: 20 mg Fluticasone Propionate (Fluticasone Propionate 100 Mcg Blst.W.Dev) 1 puff INHALE RBID REPLACED BY [facility] Hydroxyzine HCl (Hydroxyzine Hcl 50 Mg Tablet) 50 mg PO TID PRN PRN Reason: anxiety Melatonin (Melatonin 3 Mg Tablet) 6 mg PO BEDTIME PRN PRN Reason: Insomnia Montelukast Sodium (Montelukast Sodium 10 Mg Tablet) 10 mg PO BEDTIME REPLACED BY [facility] Nifedipine (Nifedipine Er 90 Mg Tab.Er.24) 90 mg PO DAILY REPLACED BY [facility] Omeprazole (Omeprazole 20 Mg Capsule.Dr) 20 mg PO DAILY@0630 REPLACED BY [facility] Prazosin HCl (Prazosin Hcl 1 Mg Capsule) 3 mg PO BEDTIME PRN; Protocol PRN Reason: Nightmares Senna (Sennosides 8.6 Mg Tablet) 17.2 mg PO BEDTIME PRN PRN Reason: Constipation Sodium Chloride (0.9 % Sodium Chloride Flush 3 Ml Syringe) 3 ml IVFLUSH QSHIFT REPLACED BY [facility] Last Admin: 10/03/21 09:30 Dose: 3 ml Home Medications Medication Instructions Recorded Confirmed Last Taken Type aripiprazole 5 mg tablet 1 tab PO DAILY 10/03/21 10/03/21 Unknown History atorvastatin 40 mg tablet 1 tab PO DAILY 10/03/21 10/03/21 Unknown History carbamazepine 100 mg 1 cap PO BID 10/03/21 10/03/21 Unknown History capsule,extended release [id number] carbamazepine 300 mg 1 cap PO BID 10/03/21 10/03/21 Unknown History capsule,extended release [id number] clonazepam 0.5 mg tablet 1 tab PO DAILY PRN Anxiety 10/03/21 10/03/21 Unknown History docusate sodium 100 mg capsule 1 cap PO BID 10/03/21 10/03/21 Unknown History escitalopram oxalate 10 mg tablet 1 tab PO DAILY 10/03/21 10/03/21 Unknown History escitalopram oxalate 20 mg tablet 1 tab PO DAILY 10/03/21 10/03/21 Unknown History fluticasone propionate 110 1 puff PO BID 10/03/21 10/03/21 Unknown History mcg/actuation HFA aerosol inhaler (Flovent HFA) hydroxyzine HCl 50 mg tablet 1 tab PO TID PRN anxiety 10/03/21 10/03/21 Unknown History montelukast 10 mg tablet 1 tab PO BEDTIME 10/03/21 10/03/21 Unknown History nifedipine 90 mg tablet,extended 1 tab PO DAILY 10/03/21 10/03/21 Unknown History release pantoprazole 40 mg tablet,delayed 1 tab PO DAILY 10/03/21 10/03/21 Unknown History release prazosin 1 mg capsule 3 mg PO BEDTIME PRN Nightmares 10/03/21 10/03/21 Unknown History Physical Exam Vital Signs: Vital Signs: Last Vital Signs Pulse 67 10/03/21 11:26 Resp 18 10/03/21 11:26 BP 167/86 H 10/03/21 11:26 Pulse Ox 99 10/03/21 11:26 O2 Del Method 10/03/21 11:26 BMI result Body Mass Index 34.7 Neuro: Other: She was alert and awake with normal spontaneity of speech fluency comprehension and affect. Face was symmetrical. Visual yang are full. There was no pronator drift. Deep tendon reflexes were absent with flexor plantars. Affect was normal. Results Labs CBC & Chem 7: 10/03/21 05:41 10/03/21 05:41 Labs: Short CBC 10/02/21 10/03/21 Range/Units 21:57 05:41 WBC 6.6 7.6 (4.8-10.8) X10*3/uL Hgb 12.1 10.5 L (12.0-16.0) g/dl Hct 37.0 32.2 L (37.0-47.0) % Plt Count 265 243 (160-400) X10*3/uL BMP 10/02/21 10/03/21 21:57 05:41 Sodium 145 142 Potassium 2.8 L 3.3 Chloride 104 108 Carbon Dioxide 27 23 BUN 13 11 Creatinine 0.82 0.66 Calcium 9.1 8.0 L D Noncontrast head CT revealed moderately severe microvascular ischemic type of changes. Assessment and Plan (1) Complex partial seizure disorder: Status: Acute 51 years old woman with obesity, uncontrolled hypertension, significant mi crovascular disease of brain related to uncontrolled hypertension and probably complex partial seizure disorder. She said that she was following neurologist in [facility] and was prescribed carbamazepine for seizure control, which has not completely worked out for her. I recommend followin. Discontinue carbamazepine, 2. Start oxcarbazepine 600 mg twice a day, 3. Start her on an antihypertensive such as lisinopril/hydrochlorothiazide combination, 4. She should follow-up with her primary care physician for appropriate treatment of hypertension and other vascular risk factors, 5. Baby aspirin daily but she suggested that her side gluer has told her not to take bab y aspirin. If that is the case, I would suggest taking fish oil once or twice a day and 6. She can follow-up with her neurologist for further guidance Procedures Date of Service Date of Service: 10/03/21
[2021-10-03] MEDS: carBAMazepine 200 MG TABLET 400 MG PO (12:52)
[2021-10-03] MEDS: NIFEdipine ER 90 MG TAB.ER.24 PO (12:52)
[2021-10-03 13:31] VITALS: BP 168/101; PULSE 70; RESP 18; O2SAT 99
--- NOTE | 2021-10-03 14:02 | P.DS_ITS ---
DS: Providers Provider Date of Service: 10/03/21 Date of admission: 10/02/21 23:58 Primary care physician: Nicolás Andres III, MD Consults: 10/03/21 00:00 Consult to Neurology Routine Consulting Provider: Amanda Wallace Reason for consultation: TIA DS: Diagnosis Discharge Diagnosis (1) Complex partial seizure disorder: Status: Inactive DS: Summary Hospital Course Hospital Course: Admission HPI: Chief Complaint:? speech difficulty ? 51-year-old female with a past medical history of hypertension, hyperlipidemia, CVA, asthma, anxiety, GERD, depression, seizure, sleep apnea, obesity presented to the hospital today with a chief complaint of disorientation.? Patient reports that she was at work and had brief episode of disorientation on unable to speak.? Symptoms lasted for about 15 minutes.? Presented to the ER for further evaluation.? Patient denies any lightheadedness dizziness.? Denies any chest pain or palpitations.? Denies any numbness tingling or focal weakness.? Patient reports that she had history of seizures and when she had a typical seizure she feels disoriented.? Denies any recent history of seizures.? Reports she has been complaint with her home medications.? Denies any GI symptoms.? Review of all other systems is negative except mentioned above ER course: Per ER team patient exam was nonfocal; CT head showed no acute findings; EKG was nonischemic; on labs noted to have low potassium.? Repeated.? Admitted to the hospital for further evaluation. Hospital course: Patient was observed overnight without any further symptoms, CT of head was negative. She was seen by Dr. Wallace from neurology with the following recommendation: ?1. Discontinue carbamazepine, 2.? Start oxcarbazepine 600 mg twice a day, 3.? Start her on an antihypertensive such as lisinopril/hydrochlorothiazide combination, 4. She should follow-up with her primary care physician for appropriate treatment of hypertension and other vascular risk factors, 5.? Baby aspirin daily but she suggested that her clinical support manager has told her not to take baby aspirin.? If that is the case, I would suggest taking fish oil once or twice a day and 6. She can follow-up with her neurologist for further guidance. I am starting her on Norvasc 5 mgaily as single agents for blood pressure rather 2 agents to start and should be reassessed by PCP for further medication adjustement Time Spent with Patient Time attestation: Total time spent providing and/or coordinating discharge services: Discharge coordination time: Greater than 30 minutes Quality: Safe Use of Opioids Does Pt have an Active Cancer Diagnosis on the Problem List?: No Quality: Stroke Does the patient have a stroke diagnosis?: No Physical Exam Vital Signs: Vital Signs: Last Vital Signs Pulse 70 10/03/21 13:31 Resp 18 10/03/21 13:31 BP 168/101 H 10/03/21 13:31 Pulse Ox 99 10/03/21 13:31 O2 Del Method 10/03/21 13:31 BMI result Body Mass Index 34.7 DS: Data Data Completed and Pending Completed studies during hospitalization [Text1]: Procedures Excision of Stomach, Percutaneous Endoscopic Approach, Vertical (07/15/21) Labs on day of discharge: Laboratory Results - last 24 hr 10/02/21 10/02/21 10/02/21 21:57 21:57 21:57 WBC 6.6 RBC 4.17 L Hgb 12.1 Hct 37.0 MCV 88.7 MCH 29.0 MCHC 32.7 RDW 14.3 Plt Count 265 MPV 10.8 Immature Gran % (Auto) 0.2 Neut % (Auto) 52.6 Lymph % (Auto) 34.0 [place] % (Auto) 9.1 Eos % (Auto) 3.8 Baso % (Auto) 0.3 Lymph # (Auto) 2.3 [place] # (Auto) 0.6 Eos # (Auto) 0.3 Baso # (Auto) 0.0 Abs Immat Gran (auto) 0.01 Absolute Neuts (auto) 3.5 Absolute Nucleated RBC 0.000 Nucleated RBC % (auto) 0.0 PT 12.9 INR 1.1 Sodium 145 Potassium 2.8 L Chloride 104 Carbon Dioxide 27 Anion Gap 17 BUN 13 Creatinine 0.82 Estim Creat Clear Calc 85.9 Estimated GFR > 60 Random Glucose 94 Calcium 9.1 Magnesium Triglycerides Cholesterol LDL Cholesterol, Calc HDL Cholesterol Carbamazepine 5.0 COVID-19 (SOFIA) COVID-19 Clin Com 10/02/21 10/03/21 10/03/21 21:57 05:41 05:41 WBC 7.6 RBC 3.59 L Hgb 10.5 L Hct 32.2 L MCV 89.7 MCH 29.2 MCHC 32.6 RDW 14.4 Plt Count 243 MPV 11.3 Immature Gran % (Auto) 0.1 Neut % (Auto) 47.6 Lymph % (Auto) 41.5 H [place] % (Auto) 8.3 Eos % (Auto) 2.1 Baso % (Auto) 0.4 Lymph # (Auto) 3.2 [place] # (Auto) 0.6 Eos # (Auto) 0.2 Baso # (Auto) 0.0 Abs Immat Gran (auto) 0.01 Absolute Neuts (auto) 3.6 Absolute Nucleated RBC 0.000 Nucleated RBC % (auto) 0.0 PT INR Sodium Potassium Chloride Carbon Dioxide Anion Gap BUN Creatinine Estim Creat Clear Calc Estimated GFR Random Glucose Calcium Magnesium Triglycerides 91 Cholesterol 134 D LDL Cholesterol, Calc 87 HDL Cholesterol 29 Carbamazepine COVID-19 (SOFIA) Negative COVID-19 Clin Com See Note 10/03/21 05:41 WBC RBC Hgb Hct MCV MCH MCHC RDW Plt Count MPV Immature Gran % (Auto) Neut % (Auto) Lymph % (Auto) [place] % (Auto) Eos % (Auto) Baso % (Auto) Lymph # (Auto) [place] # (Auto) Eos # (Auto) Baso # (Auto) Abs Immat Gran (auto) Absolute Neuts (auto) Absolute Nucleated RBC Nucleated RBC % (auto) PT INR Sodium 142 Potassium 3.3 Chloride 108 Carbon Dioxide 23 Anion Gap 14 BUN 11 Creatinine 0.66 Estim Creat Clear Calc 106.7 Estimated GFR > 60 Random Glucose 74 Calcium 8.0 L D Magnesium 1.6 Triglycerides Cholesterol LDL Cholesterol, Calc HDL Cholesterol Carbamazepine COVID-19 (SOFIA) COVID-19 Clin Com Discharge Plan Discharge Anticipated Discharge Date/Time: 10/03/21 13:50 Patient Disposition: Home, Self-Care Discharge Diagnosis: TIA, seizure Referrals: Nicolás Andres III, MD [Primary Care Provider] - 1 Week Discharge Medications: New omega 2-afj-esm-fish oil [Fish Oil] 1,000 mg (120 mg-180 mg) capsule 1 cap PO BID Qty: 60 0RF amlodipine [Norvasc] 5 mg tablet 5 mg PO DAILY Qty: 30 0RF oxcarbazepine 600 mg tablet 600 mg PO BID Qty: 60 0RF Continued atorvastatin 40 mg tablet 1 tab PO DAILY nifedipine 90 mg tablet extended release 1 tab PO DAILY prazosin 1 mg capsule 3 mg PO BEDTIME PRN (Reason: Nightmares) clonazepam 0.5 mg tablet 1 tab PO DAILY PRN (Reason: Anxiety) pantoprazole 40 mg tablet,delayed release (DR/EC) 1 tab PO DAILY docusate sodium 100 mg capsule 1 cap PO BID escitalopram oxalate 20 mg tablet 1 tab PO DAILY aripiprazole 5 mg tablet 1 tab PO DAILY hydroxyzine HCl 50 mg tablet 1 tab PO TID PRN (Reason: anxiety) montelukast 10 mg tablet 1 tab PO BEDTIME escitalopram oxalate 10 mg tablet 1 tab PO DAILY fluticasone propionate [Flovent HFA] 110 mcg/actuation HFA aerosol inhaler 1 puff PO BID No Action carbamazepine 100 mg capsule, ER multiphase 12 hr 1 cap PO BID carbamazepine 300 mg capsule, ER multiphase 12 hr 1 cap PO BID Discharge Orders: Discharge Order (Routine); Ordered 10/03/21 Ordered By: Gm Acuña Diet: Advance to usual diet Activity on Discharge: As tolerated Stand Alone Forms: Patient Portal Discharge page Care Plan Goals: Stroke and Seizure pervention Health Concerns: TIA Seizure Uncontrolled HTN Plan of Treatment: Take ?1. Discontinue carbamazepine, 2.? Start oxcarbazepine 600 mg twice a day, 3. Follow up with your own Neurologist in a week Take Norvasc 5 mg daily for High Blood pressure and follow up with your Doctor in a week for futher medication adjustment Since you are not able to take aspirin.. we recommend taking fish oil twice daily (you can get this at your local pharmacy without prescription) Assessment: As above Discharge Date/Time: 10/03/21 15:38
[2021-10-03] MEDS: amLODIPine Besylate 5 MG TABLET PO (14:53)
== END 2021-10-03 15:38 | disposition home or self-care (01) ==
LOC: HO.ED 23:58 → HO.EDOVER 10-03 00:03
PROVIDERS: Admitting Provider Hospitalist; Emergency Provider Emergency Medicine Emergency Medical Services; PCP Internal Medicine; Visit Provider Internal Medicine
DX: G40.209 Localization-related (focal) (partial) symptomatic epilepsy and epileptic syndromes with complex partial seizures, not intractable, without status epilepticus (principal); G45.9 Transient cerebral ischemic attack, unspecified; E87.6 Hypokalemia; Z20.822 Contact with and (suspected) exposure to COVID-19; I10 Essential (primary) hypertension; E78.5 Hyperlipidemia, unspecified; K21.9 Gastro-esophageal reflux disease without esophagitis; E53.8 Deficiency of other specified B group vitamins; F41.1 Generalized anxiety disorder; G47.00 Insomnia, unspecified; F32.A Depression, unspecified; J45.909 Unspecified asthma, uncomplicated; G47.30 Sleep apnea, unspecified; E66.01 Morbid (severe) obesity due to excess calories; Z68.34 Body mass index [BMI] 34.0-34.9, adult; Z98.84 Bariatric surgery status; Z86.73 Personal history of transient ischemic attack (TIA), and cerebral infarction without residual deficits; Z79.899 Other long term (current) drug therapy; Z79.02 Long term (current) use of antithrombotics/antiplatelets
CPT/HCPCS: 36415; 70450; 80048; 80061; 80156; 83735; 85025; 85610; 87635; 92610; 93005; 93306; 93356; 96360; 96361; 97161; 97165; 99219; 99284; 99285; Q9957

== ENCOUNTER → 2021-10-23 10:27 | Outpatient (BNVA) | payer OTHER, SELFPAY | PROVIDERS: PCP Internal Medicine; Visit Provider Physician Assistant | DX: E66.9 Obesity, unspecified (principal); Z68.32 Body mass index [BMI] 32.0-32.9, adult; I10 Essential (primary) hypertension; Z98.84 Bariatric surgery status | CPT/HCPCS: 99212 ==

== ENCOUNTER → 2021-12-02 11:23 | Outpatient (BNVA) | payer OTHER, SELFPAY | PROVIDERS: PCP Internal Medicine; Visit Provider Physician Assistant Surgical | DX: E66.9 Obesity, unspecified (principal); Z68.30 Body mass index [BMI] 30.0-30.9, adult; Z98.84 Bariatric surgery status | CPT/HCPCS: 99212 ==

== ENCOUNTER 2021-12-06 09:20 | Outpatient (REF) | payer OTHER, SELFPAY ==
[2021-12-06 09:33] LABS: MANUAL DIFF FLAG NO
[2021-12-06 10:05] LABS: Basophils Percent Auto 0.5 % (0-2); Eosinophils Absolute Auto 0.2 X10*3/uL (0.0-0.4); Hematocrit 34.5 % (37.0-47.0); Hemoglobin 11.4 g/dl (12.0-16.0); Imm Gran Abs Auto 0.01 X10*3/uL (0.00-0.03); Imm Gran Pct Auto 0.2 % (0.0-0.4); Lymphocytes Absolute Auto 2.1 X10*3/uL (1.2-4.9); Lymphocytes Percent Auto 36.3 % (20-40); Mean Corpuscular Hemoglobin 29.5 pg (27.0-33.0); Mean Corpuscular Volume 89.1 fL (80.0-98.0); Mean Platelet Volume 10.3 fL (9.4-12.3); Monocytes Absolute Auto 0.4 X10*3/uL (0.1-1.2); Monocytes Percent Auto 7.6 % (2-11); Neutrophils Percent Auto 51.4 % (45-73); Platelet Count 286 X10*3/uL (160-400); Red Blood Count 3.87 X10*6/uL (4.20-5.50); Red Cell Distribution Width 13.9 % (11.0-16.0); White Blood Count 5.8 X10*3/uL (4.8-10.8)
[2021-12-06 10:54] LABS: Ferritin 288 ng/mL (10-250); TSH reflex Free T4 0.89 uIU/mL (0.32-4.0); Vitamin D 25-OH Total 54.5 ng/mL (>30)
[2021-12-06 11:02] LABS: Alanine Aminotransferase 13 U/L (0-31); Albumin Level 4.1 g/dL (3.5-5.0); Alkaline Phosphatase 77 U/L (39-117); Anion Gap 16 (12-20); Aspartate Amino Transferase 16 U/L (5-31); Bilirubin Total 0.3 mg/dL (0.0-1.0); Blood Urea Nitrogen 15 mg/dL (9-16); C Reactive Protein 1.14 mg/dL (< or = 0.50); Calcium 9.5 mg/dL (8.4-10.2); Carbon Dioxide 28 mmol/L (22-29); Chloride 106 mmol/L (96-108); Cholesterol 169 mg/dL; Estimated Glomerular Filt Rate > 60; Glucose Random 86 mg/dL (60-115); HDL Cholesterol 38 mg/dL; Iron 56 mcg/dL (30-160); LDL Cholesterol Calculated 107 mg/dl; Percent Iron Saturation 28 % (15-50); Potassium 4.6 mmol/L (3.3-5.1); Sodium 145 mmol/L (135-145); Total Iron Binding Capacity 202 mcg/dL (228-428); Total Protein 7.3 g/dL (6.5-8.0); Triglycerides 121 mg/dL; Unsaturated Iron Binding 146 ug/dL
[2021-12-06 11:06] LABS: Estimated Average Glucose 85 mg/dL; Hemoglobin A1c % 4.6 %
[2021-12-06 11:07] LABS: Folate 6.6 ng/mL (> or = 4.0); Vitamin B12 853 pg/mL (200-900)
[2021-12-06 11:26] LABS: Insulin 7 uU/mL (2-29)
[2021-12-09 10:46] LABS: Calcium (PTHI) 9.4 mg/dL (8.6-10.4); PTHI 62 pg/mL (16-77)
[2021-12-10 13:02] LABS: Zinc 62 mcg/dL (60-130)
[2021-12-11 14:07] LABS: Vitamin B1 20 nmol/L (8-30)
[2021-12-11 17:02] LABS: Vitamin A 55 mcg/dL (38-98)
== END 2021-12-06 09:21 | disposition home or self-care (01) ==
LOC: HO.LAB 09:20
PROVIDERS: Visit Provider Physician Assistant Surgical
DX: Z98.84 Bariatric surgery status (principal)
CPT/HCPCS: 36415; 80053; 80061; 82306; 82607; 82728; 82746; 83036; 83525; 83540; 83970; 84425; 84443; 84590; 84630; 85025; 86140

== ENCOUNTER 2021-12-09 11:53 | Outpatient (REF) | payer OTHER, SELFPAY | END 2021-12-09 11:54 | disposition home or self-care (01) | LOC: HO.LAB 11:53 | PROVIDERS: Visit Provider Physician Assistant Surgical | DX: Z13.89 Encounter for screening for other disorder (principal) ==

== ENCOUNTER → 2022-01-13 10:49 | Outpatient (BNVA) | payer OTHER, SELFPAY | PROVIDERS: PCP Internal Medicine; Visit Provider Physician Assistant Surgical | DX: E66.3 Overweight (principal); L98.7 Excessive and redundant skin and subcutaneous tissue; K21.9 Gastro-esophageal reflux disease without esophagitis; Z68.28 Body mass index [BMI] 28.0-28.9, adult | CPT/HCPCS: 99212 ==

== ENCOUNTER → 2022-04-07 10:55 | Outpatient (BNVA) | payer OTHER, SELFPAY | PROVIDERS: PCP Internal Medicine; Visit Provider Physician Assistant Surgical | DX: E66.3 Overweight (principal); Z68.28 Body mass index [BMI] 28.0-28.9, adult; L98.7 Excessive and redundant skin and subcutaneous tissue; I10 Essential (primary) hypertension; Z98.84 Bariatric surgery status | CPT/HCPCS: 99212 ==

== ENCOUNTER 2022-07-17 09:15 | Outpatient (REF) | payer OTHER, SELFPAY ==
[2022-07-17 10:30] LABS: MANUAL DIFF FLAG NO
[2022-07-17 10:59] LABS: Basophils Percent Auto 0.6 % (0-2); Eosinophils Absolute Auto 0.2 X10*3/uL (0.0-0.4); Imm Gran Abs Auto 0.01 X10*3/uL (0.00-0.03); Imm Gran Pct Auto 0.2 % (0.0-0.4); Lymphocytes Percent Auto 38.9 % (20-40); Mean Corpuscular HGB Conc 32.4 g/dl (31.0-35.0); Mean Corpuscular Hemoglobin 30.2 pg (27.0-33.0); Monocytes Absolute Auto 0.3 X10*3/uL (0.1-1.2); Monocytes Percent Auto 6.3 % (2-11); Neutrophils Absolute Auto 2.6 x10*3/uL (2.0-8.3); Platelet Count 253 X10*3/uL (160-400); Red Blood Count 3.98 X10*6/uL (4.20-5.50); Red Cell Distribution Width 13.1 % (11.0-16.0); White Blood Count 5.2 X10*3/uL (4.8-10.8)
[2022-07-17 11:13] LABS: Estimated Average Glucose 85 mg/dL; Hemoglobin A1c % 4.6 %
[2022-07-17 11:31] LABS: Alanine Aminotransferase 28 U/L (0-31); Albumin Level 4.2 g/dL (3.5-5.0); Alkaline Phosphatase 73 U/L (39-117); Anion Gap 11 (12-20); Aspartate Amino Transferase 21 U/L (5-31); Bilirubin Total 0.4 mg/dL (0.0-1.0); Blood Urea Nitrogen 12 mg/dL (9-16); C Reactive Protein 0.18 mg/dL (< or = 0.50); Calcium 9.7 mg/dL (8.4-10.2); Carbon Dioxide 32 mmol/L (22-29); Chloride 106 mmol/L (96-108); Cholesterol 177 mg/dL; Estimated Glomerular Filt Rate > 60; Glucose Random 77 mg/dL (60-115); HDL Cholesterol 59 mg/dL; Iron 81 mcg/dL (30-160); LDL Cholesterol Calculated 101 mg/dl; Percent Iron Saturation 39 % (15-50); Potassium 4.9 mmol/L (3.3-5.1); Sodium 144 mmol/L (135-145); Total Iron Binding Capacity 206 mcg/dL (228-428); Total Protein 7.2 g/dL (6.5-8.0); Triglycerides 85 mg/dL; Unsaturated Iron Binding 125 ug/dL
[2022-07-17 12:02] LABS: Insulin 6 uU/mL (2-29)
[2022-07-17 12:05] LABS: Ferritin 145 ng/mL (10-250); TSH reflex Free T4 2.03 uIU/mL (0.32-4.0); Vitamin B12 835 pg/mL (200-900); Vitamin D 25-OH Total 51.9 ng/mL (>30)
[2022-07-20 15:54] LABS: Calcium (PTHI) 9.6 mg/dL (8.6-10.4); PTHI 69 pg/mL (16-77)
[2022-07-23 04:09] LABS: Zinc 71 mcg/dL (60-130)
[2022-07-24 17:34] LABS: Vitamin A 70 mcg/dL (38-98)
[2022-07-30 05:39] LABS: Vitamin B1 22 nmol/L (8-30)
== END 2022-07-17 09:16 | disposition home or self-care (01) ==
LOC: HO.LAB 09:15
PROVIDERS: PCP Internal Medicine; Referring Provider Internal Medicine; Visit Provider Physician Assistant Surgical
DX: L98.7 Excessive and redundant skin and subcutaneous tissue (principal); E66.9 Obesity, unspecified; Z98.84 Bariatric surgery status
CPT/HCPCS: 36415; 80053; 80061; 82306; 82607; 82728; 82746; 83036; 83525; 83540; 83970; 84425; 84443; 84590; 84630; 85025; 86140; 99212

== ENCOUNTER 2024-12-13 14:00 | Outpatient (AMB) | payer OTHER, SELFPAY ==
--- NOTE | 2024-12-13 13:58 | MHC.OFFVIS ---
Vital Signs 12/13/24 14:24 Height 5 ft 4 in Weight 230 lb BMI 39.5 BP 124/90 H Blood Pressure Location Lt brachial Position Sitting Respiration 16 Pulse 85 Pulse Source Pulse Oximeter Pulse Oximetry (%) 95 Oxygen Delivery Method Room Air Intake Visit Reasons: HX sz and stroke in april Media Production Manager Required: No Allergies Seasonal Allergies Allergy (Mild, Verified 07/17/22 09:26) itchy eyes, runny nose HPI Comments Details: Stephanie is a 54-year-old female patient with a past medical history of hypertension, seizure, obesity, BUTCH, depression, hyperlipidemia, PTSD, hemorrhagic CVA in 2016 and second hemorragic CVA in 2024. She is here today to establish care for her seizures and prior history of CVA. According to referral notes, patient has been previously followed by Dr. Garrido but has been having difficulties with getting scheduled in the [facility] clinic and is looking to transition her care here to [facility]. Her most recent seizure was in April of 2024. This was in the setting of fasting for cheondoism purposes. Ever since she has stopped fasting, she has not had any breakthrough seizure events. She has been consistent with her carbamazepine 300 mg in the morning and 400 mg at night and she tolerates it well. She has not had any staring episodes loss of awareness, abnormal movements, or awakening from sleep having had bitten her tongue or had loss of bladder. Overall, she has no concerns in terms of her seizure therapy and care. She did have and admission to [facility] back in April of 2024 at which time she had experienced a hemorrhagic stroke. Primary care notes reflect that historically her blood pressure has been very difficult to control and it was thought that her blood poorly controlled pressure played a major role in her hemorrhagic event. In April of 2024 she initially experienced vision loss and subsequent diplopia for approximately 10 minutes after losing her vision. She then experienced a very severe headache and sought out emergency medical care. She is found to have a hemorrhagic stroke on her imaging and was admitted to the hospital. Primary care has been working diligently to control her blood pressure since this event. She developed right upper and lower extremity weakness with difficulty performing fine motor skills with ataxia of the right upper extremity. She did complete a full course of physical therapy and has been going to [facility] for additional support. She feels that she has made a lot of headway in terms of her strength and coordination though still has some ongoing deficits. She would like to become more active and accomplish some weight loss in efforts to reduce her risk of stroke overall. She has made some dietary changes. For long distances, she has been using a cane but overall her mobility has improved greatly. She is no longer experiencing headaches. Prior workup available for review: CT head without contrast performed at [facility] 06/05/2024: Encephalomalacia in the left occipital lobe. No acute intracranial hemorrhage, mass effect, hydrocephalus, or transcortical infarct. Periventricular and subcortical white matter hypoattenuation likely chronic small-vessel ischemic changes. Intracranial atherosclerosis. No acute intracranial findings. MRI of the brain 02/17/2023 performed at [facility]: Chronic hemosiderin staining and encephalomalacia in the left parieto-occipital lobe, similar to prior examination. Multiple foci of microhemorrhage in the brain bilaterally, greater centrally than peripherally likely sequela of hypertensive disease. Mojz-hy-kwkaptaq T2 FLAIR hyperintense foci in the white matter, likely reflecting chronic small-vessel disease, as well as tiny chronic lacunar infarcts in the deep white matter and thalami. Findings slightly progressed since MRI in 2020. Arachnoid granulation in the right transverse sinus appears to contain a tiny focus of herniated right temporal lobe (subtle cephalocele). Mild mucosal thickening in the paranasal sinuses, with trace layering fluid in the maxillary sinuses. CT angio head and neck 02/24/2023: No proximal occlusion or high-grade stenosis in the major arteries of the head and neck. [facility] Medical History Complex partial seizure disorder Post traumatic stress disorder (PTSD) Binge eating disorder H. pylori infection Insomnia Anxiety Depression Asthma Hyperlipidemia CVA (cerebral vascular accident) Seizure Sleep apnea with use of continuous positive airway pressure (CPAP) Hypertension Morbid obesity Surgical History Hx of wisdom tooth extraction Hx of colonoscopy Family History (Updated 12/13/24 @ 14:25 by Karolina Gauthier CMA) Mother Diabetes Arthritis Brother Asthma Social History Household Members: Family Household Members Other:: mother Housing: House Are you a primary career transition specialist to a significant other at home: No Do you presently have visiting nurse or other home services: No Alcohol intake: current Alcohol intake frequency: does not drink Patient Tobacco Use Status: Never used Tobacco service: No Current occupational status: employed Review of Systems Const All systems reviewed & are unremarkable except as noted in HPI and below Neuro Denies Abnormal speech present Physical Exam Vital Signs: Last Vital Signs Pulse 85 12/13/24 14:24 Resp 16 12/13/24 14:24 BP 124/90 H 12/13/24 14:24 Pulse Ox 95 12/13/24 14:24 Oxygen Delivery Method Room Air 12/13/24 14:24 BMI result Body Mass Index 39.5 Const Orientation/consciousness: oriented to person, oriented to place and oriented to time Neuro General: oriented to person, oriented to place and oriented to time Cranial nerves: Yes CN's II-XII intact bilaterally Cognition (Neuro): normal cognition Speech: No Abnormal speech present Motor exam (neuro): Abnormal motor strength present (RLE and RUE weakness 4/5), Pronator motor function present pronator drift of right upper extremity and Other motor observations present (Mild ataxia RUE) Deep tendon reflexes (DTR's): Right triceps reflex intensity grade: 2+, Left triceps reflex intensity grade: 2+, Rt Biceps (C5, C6): 2+, Left biceps reflex intensity grade: 2+, Right brachioradialis reflex intensity grade: 2+, Left brachioradialis reflex intensity grade: 2+, Right patellar reflex intensity grade: 2+ and Left patellar reflex intensity grade: 2+ Assessment & Plan Assessment & Plan (1) CVA (cerebral vascular accident): Comment: decreased peripheral vision Code(s): I63.9 - Cerebral infarction, unspecified Category: Medical (2) Seizure: Comment: last seizure about [address] Solo Garrido [facility], called for last note Code(s): R56.9 - Unspecified convulsions Category: Medical Plan Stephanie is a 54-year-old female patient with a past medical history of hypertension, seizure, obesity, BUTCH, depression, hyperlipidemia, PTSD, hemorrhagic CVA in 2017 and second hemorragic CVA in 2024. She is here today to establish care for her seizures and prior history of CVA. Seizures are currently stable on current dose of carbamazepine 300 mg in morning and 400 mg at night and she is tolerating it well. We will continue on current seizure prevention regimen. In regards to stroke history. Overall, she has poorly controlled hypertension historically with a hemorrhagic stroke in 2017 and again in early 2024. An MRI of the brain performed at [facility] 02/15/2023 also is noteworthy for multiple foci of microhemorrhage in the brain bilaterally, greater centrally than peripherally, likely sequela of hypertensive disease. I reviewed this patient's history and imaging studies with my attending physician Dr. Wallace. It is our ultimate recommendation that she avoid the use of aspirin given her age and current risk of intracerebral bleeding. Furthermore, a CT angio of the head and neck performed in January of 2023 showed no proximal occlusion or high-grade stenosis in the major arteries of the head and neck. At this time, we feel that aspirin therapy may pose a greater risk for bleeding then it would provide benefit. Adversely, she could utilize fish oil supplements for a more naturopathic means of prevention and reduction of cardiovascular risk factors. -continue current antiepileptic medication regimen -avoid the use of aspirin therapy for now -continue working on establishing strong blood pressure control with primary care -continue on statin therapy -monitor her dietary intake with emphasis on Mediterranean diet -continue with slow increase her physical activity and physical therapy exercises -follow up in 3 months or sooner if needed 45 minutes spent with patient in review of outside records and neuroimaging. Additional time spent in history taking, exam, and education including review of seizure triggers and overall seizure care as well as education regarding stroke preventive therapies and lifestyle changes at home. Coding Level of Care Code Est Pt Level 5 (37592) Diagnoses CVA (cerebral vascular accident) I63.9 Seizure R56.9
[2024-12-13 14:24] VITALS: BP 124/90; PULSE 85; RESP 16; O2SAT 95; BMI 39.5
--- OUTSIDE RECORDS SUMMARY | 2024-12-13 17:45 | XMS_ITS | Encounter Summary ---
Author Organization [facility] Address [address] [place] [address] Care Team Providers Care Nuisance Wildlife Control Operator Name Role Phone Nicolás Andres MD Primary Care Provider Encounter Details Date Type Department Care Team (Latest Contact Info) Description 06/08/2024 Lab Requisition [facility] - Main Lab [address] [place] [phone] Analia Pang NP [address] [facility] [address] [place] [address] Intracardiac thrombosis, not elsewhere classified; Nontraumatic intracerebral hemorrhage, unspecified (CMS/HCC V24, CMS/HCC V28) Social History Tobacco Use Types Packs/Day Years Used Date Smoking Tobacco: Never Smokeless Tobacco: Never Alcohol Use Standard Drinks/Week Comments No 0 (1 standard drink = 0.6 oz pur e alcohol) Housing Instability Answer Date Recorde d Are you worried that in the next 2 months you may not have stable housing? No 05/01/2024 Food Access & Nutrition Answer Date Rec orded Do you have access to a vari ety of food including fruits and vegetables? Yes 05/01/2024 Health Literacy Answer Date Recorded How often do you need to hav e someone help you when you read instructions, pamphlets, or other written material from your doctor or pharmacy? Rarely 06/02/2024 Caregiver: How often do you need to have someone help you when you read instructions, pamphlets, or other written material from your doctor or pharmacy? Not on file 06/02/2024 Financial Risk Answer Date Recorded How hard is it for you to pa y for the very basics like food, housing, medical care, and air conditioning / heating? Not very hard 05/01/2024 Transportation Answer Date Recorded Has the lack of transportati on kept you from meetings, work, or from getting things needed for daily living? No Has the lack of transportati on kept you from medical appointments or from getting medications? No 05/05/2024 Social Isolation Answer Date Recorded How often do you feel lonely or isolated from th ose around you? Never 06/01/2024 Food Risk Answer Date Recorded Within the past 12 months we worried whether our food would run out before we got money to buy more. Never true 05/01/2024 Within the past 12 months th e food we bought just didn't last and we didn't have money to get more. Never true 05/01/2024 Dependent Care Answer Date Recorded Do you need help finding or paying for care for your loved ones. For example, child life therapist or elderly care for an older adult? No 05/01/2024 Education Answer Date Recorded Do you think completing more education or training, like finishing a GED, going to college, or learning a trade, would be helpful for you? No 05/01/2024 Employment and Income Answer Date Recor ded During the last four weeks, have you been actively looking for work? No 05/01/2024 Living Situation Answer Date Recorded What is your living situation? Unrecognized valu e 05/01/2024 Interpersonal Safety Answer Date Record ed Physical Abuse Unrecognized value 05/05/2024 Verbal Abuse Unrecognized value 05/05/2024 Comments No Sex and Gender Information Value Date Recorded Sex Assigned at Female 05/01/2024 10:36 PM EST Legal Sex Female 11:23 AM EDT Gender Identity Female 05/01/2024 10:36 PM EST Sexual Orientation Straight 05/01/2024 10 :36 PM EST documented as of this encounter Plan of Treatment Upcoming Encounters Date Type Department Care Team (Late st Contact Info) Description 12/20/2024 8:45 AM EDT Office Visit Pulmonology - [place] [address] [facility] [address] [place] [phone] Jaelyn Cohen MD [address] [facility] [address] [place] [address] 01/16/2025 7:30 AM EST Office Visit Adult Medicine [facility] [address] [place], [place] [phone] Delia Zeng PA [address] [place], [place] 04/12/2025 10:30 AM EST Consult Bariatric Surgery - [place] [address] [facility] [address] [place] [phone] Marie Correa PA [address] [place] [phone] documented as of this encounter Procedures Procedure Name Priority Date/Time Associated Diagnosis Comments CARBAMAZEPINE LEVEL, TOTAL Routine 06/08/2024 10:00 AM EDT Intracardiac thrombosis, not elsewhere classified Nontraumatic intracerebral hemorrhage, unspecified (CMS[facility] V24, [facility] V28) documented in this encounter Results * Carbamazepine level, total (06/08/2024 10:00 AM EDT) Carbamazepine Level 8.0 8.0 - 12.0 mcg/mL LAB CHEMISTRY METHOD 06/08/2024 11:57 AM EDT [facility] Blood Venous blood specimen / Unknown 06/08/2024 10:00 AM EDT 06/08/2024 11:00 AM EDT Analia Pang NP LAB BLOOD ORDERABLES Nimisha pavon Result [facility] [address] [place] [address], documented in this encounter Visit Diagnoses Diagnosis Intracardiac thrombosis, not elsewhere classified Nontraumatic intracerebral hemorrhage, unspecified ([facility] V24, [facility] V28) documented in this encounter Additional Health Concerns Assessment Noted Time PHQ-9 Depression Total Score: 0 06/02/19 25 11:42 AM EDT documented as of this encounter Care Teams Nuisance Wildlife Control Operator Relationship Specialty Start Date End Date Nicolás Andres MD [address] [place] [phone] PCP - General Internal Medicine 10/17/20 documented as of this encounter
--- OUTSIDE RECORDS SUMMARY | 2024-12-13 17:45 | XMS_ITS | Clinical Summary ---
Author Organization Patient Business Ser [facility] [place] Address [address] [place] [address] Care Team Providers Care [facility] [employer] Name Role Phone Nicolás Andres MD Primary Care Provider [phone] Allergies Active Allergy Reactions Criticality Noted Date Comments Other Runny nose Low 03/22/2019 Seasonal Allergies Medications fluticasone HFA (Flovent HFA) 110 mcg/actuation inhaler TAKE 1 PUFF BY MOUTH TWICE A DAY 12/30/19 23 Active carBAMazepine (CARBATROL) 300 mg 12 hr capsule Take 1 capsule (300 mg total) by mouth 1 (one) time each day. Do not crush or chew. 30 each 06/04/19 25 Active carBAMazepine (CARBATROL) 200 mg 12 hr capsule Take 2 capsules (400 mg total) by mouth at bedtime. Do not crush or chew. 60 each 06/03/19 25 Active clonazePAM (KlonoPIN) 0.5 mg tablet Take 1 tablet (0.5 mg total) by mouth 1 (one) time each day if needed for anxiety for up to 7 days. Max Daily Amount: 0.5 mg 7 tablet 06/03/19 25 Active escitalopram (LEXAPRO) 10 mg tablet Take 1 tablet (10 mg total) by mouth 1 (one) time each day. 90 each 1 06/06/19 25 Active senna 8.6 mg tablet TAKE 1 TABLET BY MOUTH TWICE A DAY 180 tablet 1 08/01/19 25 Active Additional Information Patient taking differently:1 tablet oralAs needed, Reported on 09/12/2024 ferrous sulfate 325 mg (65 mg elemental iron) tablet TAKE 1 TABLET BY MOUTH 1 TIME EACH DAY. 90 tablet 1 09/27/19 25 Active losartan (COZAAR) 100 mg tablet TAKE 1 TABLET BY MOUTH 1 TIME EACH DAY. 90 tablet 1 09/27/19 25 Active Ferrocite 324 mg (106 mg iron) tablet TAKE 1 TABLET BY MOUTH EVERY DAY 90 tablet 1 09/27/19 25 Active montelukast (SINGULAIR) 10 mg tablet TAKE 1 TABLET (10 MG TOTAL) BY MOUTH AT BEDTIME. 90 tablet 1 11/22/19 25 Active docusate sodium (COLACE) 100 mg capsule TAKE 1 CAPSULE BY MOUTH TWICE A DAY 180 capsule 1 12/01/19 25 Active Ventolin HFA 90 mcg/actuation inhalerIndicati ons:Moderate persistent asthma, unspecified whether complicated INHALE 2 PUFFS BY MOUTH EVERY 4 (FOUR) HOURS IF NEEDED FOR WHEEZING. 18 each 5 12/01/19 25 Active atorvastatin (LIPITOR) 40 mg tablet TAKE 1 TABLET BY MOUTH EVERYDAY AT BEDTIME 90 tablet 1 12/01/19 25 Active amLODIPine (NORVASC) 10 mg tabletIndicatio ns:Uncontrolled hypertension TAKE 1 TABLET BY MOUTH 1 TIME EACH DAY. 90 tablet 1 12/01/19 25 Active hydroCHLOROthia zide (HYDRODIURIL) 25 mg tablet Take 1 tablet (25 mg total) by mouth 1 (one) time each day. 90 tablet 1 12/01/19 25 026 Active atorvastatin (LIPITOR) 40 mg tablet Take 1 tablet (40 mg total) by mouth at bedtime. 90 each 1 06/06/19 25 025 Discontinued montelukast (SINGULAIR) 10 mg tablet Take 1 tablet (10 mg total) by mouth at bedtime. at bedtime. 90 each 1 06/06/19 25 025 Discontinued amLODIPine (NORVASC) 10 mg tabletIndicatio ns:Uncontrolled hypertension Take 1 tablet (10 mg total) by mouth 1 (one) time each day. 90 tablet 1 06/14/19 25 025 Discontinued docusate sodium (COLACE) 100 mg capsule TAKE 1 CAPSULE BY MOUTH TWICE A DAY 180 capsule 1 08/01/19 25 025 Discontinued hydroCHLOROthia zide 12.5 mg tablet TAKE 1 TABLET BY MOUTH 1 TIME EACH DAY. 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 FSH and estradiol ordered. If labs demonstrate menopausal status, patient will return for IUD removal. Cardiac murmur 05/26/2022 Overview (01/25/2024): Last Assessment & Plan: Questionable systolic murmur on exam. Recommend f/u with PCP. Urinary tract infection symptoms 05/26/2022 Overview (01/25/2024): Last Assessment & Plan: UA positive for moderate blood. Urine culture sent. Will treat as indicated. Anxiety 07/18/2021 Depression 07/18/2021 GERD (gastroesophageal reflux disease) Hyperlipidemia 07/18/2021 Vitamin D deficiency 02/25/2021 Overweight (BMI 25.0-29.9) 10/17/2020 Overview (01/25/2024): S/p sleeve gastrectomy 06/2021 Moderate persistent asthma 04/17/2019 Obstructive sleep apnea 01/24/2019 Overview (01/25/2024): Referred to pulmonary 12/2018 [facility] [place] Polysomnogram Date 01/04/2019. Wt 210#; BMI 36. Without PAP: AHI (no REM), Central apneas 0; Obstructive apneas 1; Mixed apneas 0; hypopneas 36; average oxygen saturation 98% (lowest 89%); PLMs 0. With PAP: On CPAP between 5-10; AHI 2.7; Central apneas 0; Obstructive apneas 0; Mixed apneas 0; hypopneas 3; average oxygen saturation was 97%; PLMs ~0. - Obstructive Sleep Apnea - moderate' mostly hypopneas; without sleep related hypoventilation by 2019 polysomnogram. Posttraumatic stress disorder 04/28/2018 Uterine fibroid 05/13/2017 Adjustment disorder with mixed anxiety and depre ssed mood 04/15/2017 Overview (01/25/2024): Due to CVA. Follows with therapist, CBT, relaxation methods. Has fears about recurrence of stroke. Cardiac arrest ([facility] V24, [facility] V28) 2016 Overview (01/25/2024): PEA arrest secondary to hypoxia in the setting of seizure from intraparenchymal hemorrhage 01/2017 CVA (cerebrovascular acciden t due to intracerebral hemorrhage) ([facility] V24, [facility] V28) 02/15/2017 Overview (01/25/2024): Left occipital/parietal hemorrhage 01/2017 hospitalized at [facility] No residual motor deficits. Right peripheral vision disturbance and memory issues. Follows with neurology and neuro-opthalmology (Dr. Daly) and neurology (Dr. Osman) Most recent visual field testing showed mild right homonymous inferior quandrantanopia Diastolic CHF ([facility] V24, [facility] V28) 017 Overview (01/25/2024): TTE from 12/2016 EF 55-65 % grade II diastolic dysfunction Primary hypertension 02/15/2017 Iron deficiency anemia due to chronic blood loss 02/15/2017 Overview (01/25/2024): folate, B12, haptoglobin and ferritin are normal Seizure disorder ([facility] V24, [facility] V28) 01/29 Overview (01/25/2024): Seizure following hypertensive hemorrage. Follows with neurology Dr. 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) ([facility] V24, [facility] V28) 05/05/2024 05/05/2024 Encounters Date Type Department Care Team Description 11/23/2024 Telephone Adult Medicine [address] [phone] Nicolás Andres MD 11/20/2024 Nurse Triage Adult Medicine [address] [phone] Nicolás Andres MD 10/06/2024 8:45 AM EDT Treatment [facility] Therapy [address] [place] [phone] Cydney Prather, OT Hemorrhagic cerebrovascular accident (CVA) ([facility] [place], [facility] V28) (Primary Dx); Right sided weakness 10/04/2024 9:30 AM EDT Treatment [address] [phone] Татьяна Lau COTA/Olimpia Hemorrhagic cerebrovascular accident (CVA) ([facility] V24, [facility] V28) (Primary Dx); Right sided weakness 10/03/2024 8:00 AM EDT Treatment [address] [phone] Pierce Alvarez PT Hemorrhagic cerebrovascular accident (CVA) ([facility] V24, [facility] V28) (Primary Dx) 09/29/2024 9:00 AM EDT Treatment [address] [phone] Cydney Prather, OT Hemorrhagic cerebrovascular accident (CVA) ([facility] V24, [facility] V28) (Primary Dx); Right sided weakness 09/29/2024 8:30 AM EDT Treatment [address] [phone] Pierce Alvarez, PT Hemorrhagic cerebrovascular accident (CVA) ([facility] V24, [facility] V28) (Primary Dx) 09/29/2024 Telephone [facility] Medicine [address] [phone] Nicolás Andres MD 09/27/2024 9:15 AM EDT Treatment [facility] Therapy [address] [place] [phone] Татьяна Lau, BLUNT/L Hemorrhagic cerebrovascular accident (CVA) ([facility] V24, [facility] V28) (Primary Dx); Right sided weakness 09/20/2024 10:30 AM EDT Treatment [facility] Occupational [address] [phone] Татьяна Lau, BLUNT/L Hemorrhagic cerebrovascular accident (CVA) ([facility] V24, [facility] V28) (Primary Dx); Right sided weakness 09/13/2024 5:00 PM EDT Treatment [facility] Occupational [address] [phone] Cydney Prather OT Hemorrhagic cerebrovascular accident (CVA) ([facility] V24, [facility] V28) (Primary Dx); Right sided weakness 09/13/2024 4:30 PM EDT Treatment [address] [phone] Pierce Alvarez, PT Hemorrhagic cerebrovascular accident (CVA) ([facility] V24, [facility] V28) (Primary Dx) 09/12/2024 10:30 AM EDT Office Visit [address] [phone] Nicolás Andres MD Primary hypertension (Primary Dx); Urinary frequency; CVA (cerebrovascular accident due to intracerebral hemorrhage) ([facility] V24, [facility] V28); Seizure disorder ([facility] V24, [facility] V28) 09/12/2024 8:00 AM EDT Treatment [facility] Therapy [address] [phone] Татьяна Lau COTA/Olimpia Hemorrhagic cerebrovascular accident (CVA) ([facility] V24, [facility] V28) (Primary Dx); Right sided weakness from Last 3 Months Immunizations Immunization Administration Dates Next Due HepB-CpG (Heplisav-B) 18yo and older 11/10/2024, 10/12/2024 Influenza Quadravalent, MDCK , 0.5ml, preservative free (Flucelvax) 6mo and older 12/05/2021,12/12/2020,12/22/2019, 019,04/28/2018 Influenza trivalent, 0.5mL, preservative free (Fluarix; FluLaval; Fluzone) ages 6mo and older (Afluria) 3 years and older 05/04/2024(Deferred: Contraindication - patient received flu shot from [facility]),12/03/2009 Influenza trivalent, recombi nant, 0.5mL, preservative free (Flublok) 9yo and older 11/10/2024 Pfizer (ages 12 & older) Biv alent, COVID-19 11/26/2021 Pfizer SARS-CoV-2 COVID-19, mRNA, LNP-S, preservative free 08/29/2021 Pneumococcal conjugate 13 va lent (Prevnar 13, PCV13) 2mo and older 01/03/2020 RSV, bivalent, protein subun it RSVpreF, 0.5mL, Preservative Free (Arexvy) 50yo and older 10/12/2024 Tdap Tetanus diptheria acell ular pertussis (Boostrix; Adacel) 7yo and older 04/28/2018 Surgical History Surgery Date Site/Laterality Comments BREAST SURGERY late 80s Left cyst COLONOSCOPY 09/24/2020 negative BARIATRIC SURGERY 07/15/2021 lap sleeve gastrectomy, [facility] Medical History Medical History Date Comments Hypertension 02/15/2017 Cardiac arrest ([facility] V24, [facility] V28) 02/15/2017 PEA arrest secondary to hypo earl in the setting of seizure from intraparenchymal hemorrhage 01/2017 Diastolic CHF ([facility] [place]24, [facility] V28) 02/15/2017 TTE from 12/2016 EF 55-65 % grade II diastolic dysfunction Obesity (BMI 30-39.9) 02/15/2017 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 Follows with erapist, CBT, relaxation methods. Has fears about recurrence of stroke. Iron deficiency anemia due t o chronic blood loss 02/15/2017 folate, B12, haptoglobin and ferritin are normal H/O menorrhagia 03/15/2017 Follows with [facility] , s/p pelvis US positive for uterine fibroids. Planned for IUD Uterine fibroid 05/13/2017 Seizure disorder ([facility] V2 4, [facility] V28) 02/15/2017 Seizure following hypertensi ve hemorrage. Follows with neurology Dr. Osman CVA (cerebrovascular acciden t due to intracerebral hemorrhage) ([facility] [place]24, [facility] V28) 02/15/2017 Left occipital/parietal hemo rrhage 01/2017 hospitalized at [facility] No residual motor deficits. Right peripheral vision disturbance and memory issues. Follows with neurology and neuro-opthalmology (Dr. Daly) and neurology (Dr. Osman) Most recent visual field testing showed mild right homonymous inferior quandran* Posttraumatic stress disorder 04/28/2018 Anxiety 07/18/2021 Depression 07/18/2021 Hyperlipidemia 07/18/2021 GERD (gastroesophageal reflu x disease) 07/18/2021 History of bariatric surgery 07/18/202106/29 s/p lap sleeve gastrectomy. Family History Medical History Relation Name Comments Asthma Brother x 1 Diabetes Maternal Grandmother Rheum arthritis Mother Diabetes Relation Name Status Comments Brother x 1 Alive Father unknown Other Maternal Grandfather Maternal Grandmother Mother Alive Paternal Grandfather unknown Other Paternal Grandmother unknown Other Social History Tobacco Use Types Packs/Day Years Used Date Smoking Tobacco: Never Smokeless Tobacco: Never Tobacco Cessation:Counseling Given: Not Answered Alcohol Use Standard Drinks/Week Comments No 0 [...] care for your loved ones. For example, childrens club attendant or elderly care for an older adult? [...] Orientation Straight 05/01/2024 10 :36 PM EST Obstetrics History Para Term AB IAB SAB Ectopic Multiple Livin g Live Births 0 0 0 Last Filed Vital Signs Vital Sign Reading Time Taken Comments Blood Pressure 134/82 09/12/2024 10:07 AM EDT Pulse 66 09/12/2024 10:07 AM EDT Temperature 36.4 C (97.6 F) 09/12/2024 10:07 AM EDT Respiratory Rate 14 09/12/2024 10:07 AM EDT Oxygen Saturation 98% 09/12/2024 10:07 AM EDT Inhaled Oxygen Concentration - - Weight 103 kg (227 lb) 09/12/2024 10:07 AM EDT Height 162.6 cm (5' 4 ) 09/12/2024 10:07 AM EDT Body Mass Index 38.96 09/12/2024 10:07 AM EDT Plan of Treatment Upcoming Encounters Date Type Department Care Team (Late st Contact Info) Description 12/20/2024 8:45 AM EDT Office Visit Pulmonology - [place] 175 [facility] [address] [place] [phone] Jaelyn Cohen MD 175 [facility] [address] [place] [address] 01/16/2025 7:30 AM EST Office Visit Adult Medicine [address] [phone] Delia Zeng PA [address] [place] [address] [phone] 04/12/2025 10:30 AM EST Consult Bariatric Surgery - [place] 175 [facility] [address] [place] [phone] Marie Correa PA [address] [place] [phone] Health Maintenance Due Date Last Done Comments HIV Screening 08/18/2021 Pneumococcal Vaccine: 50+ Years (3 of 3 - PCV20 or PCV21) 01/02/2025 01/03/2020, 01/28/2017 Social Influencers of Health Screening 06/02/2025 06/02/2024 Hypertension/CHF/CAD Annual BMP Blood Test 09/12/2025 09/12/2024, 06/05/2024, 05/31/2024, Additional history exists Breast Cancer Screening 04/12/2026 04/12/19, 01/13/2023, 01/08/2022, Additional history exists Cervical Cancer Screening: HPV 05/27/2027 05/26/2022 DTaP,Tdap,and Td Vaccines (3 - Td or Tdap) 04/28/2028 04/28/2018, 04/10/2015 Cholesterol Screening (Lipid Panel) 11/15/2028 11/16/2023, 11/16/2023 Colorectal Cancer Screening: Colonoscopy 09/24/2030 09/24/2020 Hepatitis C Screening Completed 09/14/2010 Hepatitis A Vaccines Aged Out 04/10/2015 No long er eligible based on patient's age to complete this topic Zoster Vaccines Completed 04/11/2022, 01/03/2022 COVID-19 Vaccine Completed 11/16/2023, , 11/26/2021, Additional history exists Depression Screening Completed 06/01/2024 RSV Immunization Adult Patients Completed 10/12/2024 Hepatitis B Vaccines Completed 11/10/2024, 10/13/19 Influenza Vaccine Completed 11/10/2024, , 11/20/2022, Additional history exists HIB Vaccines Aged Out No longer eligi ble based on patient's age to complete this topic HPV Vaccines Aged Out No longer eligi ble based on patient's age to complete this topic IPV Vaccines Aged Out No longer eligi ble based on patient's age to complete this topic MMR Vaccines Aged Out No longer eligi ble based on patient's age to complete this topic Meningococcal ACWY Vaccine Aged Out N o longer eligible based on patient's age to complete this topic Meningococcal B Vaccine Aged Out No l onger eligible based on patient's age to complete this topic RSV Immunization Patients Under 20 months Aged Out No longer eligible based on patient's age to complete this topic Varicella Vaccines Aged Out No longer eligible based on patient's age to complete this topic Procedures Procedure Name Priority Date/Time Associated Diagnosis Comments URINALYSIS WITH REFLEX MICROSCOPIC Routine 09/12/2024 11:27 AM EDT Urinary frequency BASIC METABOLIC PANEL Routine 09/12/2024 11:27 AM EDT Primary hypertension URINALYSIS WITH REFLEX MICROSCOPIC Routine 09/12/2024 11:27 AM EDT Urinary frequency MG MAMMO DIGITAL SCREENING W KIKE BILAT Routine 04/12/2024 7:54 AM EST Encounter for screening mammogram for breast cancer LIPID PANEL Routine 11/16/2023 HM HPV Routine 05/26/2022 COLONOSCOPY Routine 09/24/2020 HEPATITIS C SCREENING Routine 09/14/2010 from Last 3 Months or Most Recently Relevant to Health Maintenance Results * Urinalysis with reflex microscopic (09/12/2024 11:27 AM EDT) Specific [place] Urine 1.015 1.003 - 1.030 LAB URINALYSIS - AUTOMATED METHOD 09/12/2024 3:26 PM T [facility] pH, Urine 7.5 5.0 - 8.0 pH LAB URINALYSIS - AUTOMATED METHOD 09/12/2024 3:26 PM [facility] Leukocytes, Urine Negative Negative LAB URINALYSIS - AUTOMATED METHOD 09/12/2024 3:26 PM [facility] Nitrite, Urine Negative Negative LAB URINALYSIS - AUTOMATED METHOD 09/12/2024 3:26 PM [facility] Protein, Urine Negative <=Trace mg/dL LAB URINALYSIS - AUTOMATED METHOD 09/12/2024 3:26 PM EDT [facility] Glucose, Urine Negative Negative mg/dL LAB URINALYSIS - AUTOMATED METHOD 09/12/2024 3:26 PM EDT [facility] Ketones, Urine Negative Negative mg/dL LAB URINALYSIS - AUTOMATED METHOD 09/12/2024 3:26 PM EDT [facility] Urobilinogen, Urine 0.2 0.2 - 1.0 mg/dL LAB URINALYSIS - AUTOMATED METHOD 09/12/2024 3:26 PM EDT [facility] Bilirubin, Urine Negative Negative LAB URINALYSIS - AUTOMATED METHOD 09/12/2024 3:26 PM EDT [facility] Blood, Urine Negative Negative LAB URINALYSIS - AUTOMATED METHOD 09/12/2024 3:26 PM [facility] Urine Urine specimen obtained by clean catch procedure / Unknown Non-blood Collection / Unknown 09/12/2024 11:27 AM EDT 09/12/2024 11:27 AM EDT us Nicolás Andres MD LAB URINE ORDERABLES Final Resu lt [facility] [address] [place] [address], [place] [phone] * (ABNORMAL) Basic metabolic panel (09/12/2024 11:27 AM EDT) Sodium 139 133 - 145 mmol/L LAB CHEMISTRY METHOD 09/12/2024 4:48 PM EDT [facility] Potassium 3.9 3.5 - 5.5 mmol/L LAB CHEMISTRY METHOD 09/12/2024 4:48 PM EDT [facility] Chloride 102 96 - 110 mmol/L LAB CHEMISTRY METHOD 09/12/2024 4:48 PM [facility] CO2 33(H) 21 - 32 mmol/L LAB CHEMISTRY METHOD 09/12[facility]2024 [facility] Anion Gap 4 3 - 11 LAB CHEMISTRY METHOD 09/12/2024 4:48 PM EDT [facility] Glucose 82 70 - 100 mg/dL LAB CHEMISTRY METHOD 09/12/2024 4:48 PM [facility] BUN 10 5 - 25 mg/dL LAB CHEMISTRY METHOD 09/12/2024 4:48 PM EDT [facility] Creatinine 0.74 0.50 - 1.10 mg/dL LAB CHEMISTRY METHOD 09/12/2024 4:48 PM EDT [facility] eGFR 96 >=60 mL/min/1. 73m2 LAB CHEMISTRY METHOD 09/12/2024 4:48 PM EDT [facility] Comment:Calculation based on the Chronic Kidney Disease Epidemiology Collaboration (CKD-EPI) equation refit without adjustment for race. BUN/Creatinine Ratio 13.5 LAB CHEMISTRY METHOD 09/12/2024 4:48 [facility] Calcium 9.7 8.5 - 10.5 mg/dL LAB CHEMISTRY METHOD 09/12/2024 4:48 [facility] Blood Venous blood specimen / Unknown Venipuncture / Unknown 09/12/2024 11:27 AM EDT 09/12/2024 11:27 AM EDT us Nicolás Andres MD LAB BLOOD ORDERABLES Final Resu lt [facility] [address] [place] [address], [place] [phone] * MG Mammo Digital Screening w Kike bilat (04/12/2024 7:54 AM EST) Anatomical Region Laterality Modality Breast Bilateral Mammography 04/12/2024 9:53 AM EST Impressions 04/12/2024 9:59 AM EST No mammographic evidence for malignancy. BI-RADS CATEGORY: 1 - NEGATIVE RECOMMENDATION: Screening bilateral mammogram is recommended in 1 year. Mammo Location: [facility], [address] [place] [address], [id number], . -------- FINAL REPORT -------- Dictated By: Brenda Yates Dictated Date: 04/12/2024 09:53 ET Assigned Physician: Brenda Yates Reviewed and Electronically Signed By: Brenda Yates Signed Date: 04/12/2024 09:59 ET Workstation ID: [id number] Transcribed By: Self Edit Transcribed Date: 04/12/2024 09:53 ET Narrative 04/12/2024 9:59 AM EST Bilateral screening mammogram. CLINICAL: 54 years old, Female, routine annual exam. COMPARISON: Prior mammograms, latest from 01/13/2023. TECHNIQUE: Bilateral MLO and CC views were obtained digitally with 2-D C views and 3-D mammogram (digital breast tomosynthesis). Computer-aided detection was utilized in evaluation of this exam (CAD). FINDINGS: There is no evidence of suspicious mass or architectural distortion. No worrisome calcifications are evident. There has been no significant change from prior exam(s). BREAST DENSITY: B - There are scattered areas of fibroglandular density. Procedure Note Brenda Yates MD - 04/12/2024 Bilateral screening mammogram. CLINICAL: 54 years old, Female, routine annual exam. COMPARISON: Prior mammograms, latest from 01/13/2023. TECHNIQUE: Bilateral MLO and CC views were obtained digitally with 2-D Cviews and 3-D mammogram (digital breast tomosynthesis). Computer-aideddetection was utilized in evaluation of this exam (CAD). FINDINGS: There is no evidence of suspicious mass or architectural distortion. Noworrisome calcifications are evident. There has been no significantchange from prior exam(s). BREAST DENSITY: B - There are scattered areas of fibroglandular density. IMPRESSION: No mammographic evidence for malignancy. BI-RADS CATEGORY: 1 - NEGATIVE RECOMMENDATION: Screening bilateral mammogram is recommended in 1 year. Mammo Location: [facility], [address] [place] [address], [id number], . -------- FINAL REPORT -------- Dictated By: Brenda Yates Dictated Date: 04/12/2024 09:53 ET Assigned Physician: Brenda Yates Reviewed and Electronically Signed By: Brenda Yates Signed Date: 04/12/2024 09:59 ET Workstation ID: [id number] Transcribed By: Self Edit Transcribed Date: 04/12/2024 09:53 ET Nicolás Andres MD IMG BI PROCEDURES Final Result * (ABNORMAL) Lipid panel (11/16/2023) Pathologist [facility] LDL/HDL Ratio 3 0 - 4 Triglycerides 155(A) 0 - 150 mg/dL Cholesterol 208(A) 0 - 200 mg/dL HDL 61 >=40 mg/dL LDL Cholesterol 116(A) 0 - 100 mg/dL Blood Venous blood specimen / Unknown Result [facility] Provider LAB BLOOD ORDERABLES Nimisha l Result * Cervical Cancer Screening: HPV (05/26/2022) Pathologist [facility] Cervical Cancer Screening: HPV Negative, Abstracted Result [facility] Provider HEALTH MAINTENANCE Final Result * Colonoscopy (09/24/2020) Pathologist [facility] Colonoscopy No Interpretation , Abstracted Anatomical Region Laterality Modality Other [facility] Provider HEALTH MAINTENANCE Final Result * Hepatitis C Screening (09/14/2010) Pathologist [facility] Hepatitis C Screening Abstracted [facility] Provider HEALTH MAINTENANCE Final Result from Last 3 Months or Most Recently Relevant to Health Maintenance Insurance [facility] [employer] Advance Directives Documents on File Type Date Recorded Patient Order Takers Supervisor Expl anation Advance Directives and Living Will 05/04/2024 3:57 PM Damari Knox Health Care Proxy * Full Code - Default (Latest Code Status on File) Date Activated Date Inactivated Comments 05/05/2024 1:39 PM 06/03/2024 1:58 PM This is order is used when code status has not been discussed with the patient, or code status is otherwise unknown/unconfirmed To update the patient's code status, place a code status order. Do not modify or discontinue any currently active code status orders. * Full Code - Default Date Activated Date Inactivated Comments 05/01/2024 2:25 PM 05/05/2024 12:12 PM This is order is used when code status has not been discussed with the patient, or code status is otherwise unknown/unconfirmed To update the patient's code status, place a code status order. Do not modify or discontinue any currently active code status orders. Healthcare Agents on File Name Relationship Healthcare Agent Relationshi p Communication Damari Knox Mother First Alternate Health Care Agent Care Teams [employer] Relationship Specialty Start Date End Date Nicolás Andres MD [address] [place] [phone] PCP - General Internal Medicine 10/17/20
--- OUTSIDE RECORDS SUMMARY | 2024-12-13 17:45 | XMS_ITS ---
[facility] Organization [facility] Care Team Organization Name Specialty Phone Email Start Date End Da te [facility] LONNIE SARAH Primary Care 01/06/2022 4
== END 2024-12-13 14:57 | disposition home or self-care (01) ==
LOC: HO.HSM 14:01
PROVIDERS: PCP Internal Medicine; Visit Provider Nurse Practitioner
DX: I63.9 Cerebral infarction, unspecified (principal); R56.9 Unspecified convulsions
CPT/HCPCS: 99215

== ENCOUNTER → 2024-12-13 14:00 | Outpatient (BNVA) | payer OTHER, SELFPAY | PROVIDERS: PCP Internal Medicine; Visit Provider Nurse Practitioner | DX: I63.9 Cerebral infarction, unspecified (principal); G40.209 Localization-related (focal) (partial) symptomatic epilepsy and epileptic syndromes with complex partial seizures, not intractable, without status epilepticus; F43.10 Post-traumatic stress disorder, unspecified; E66.01 Morbid (severe) obesity due to excess calories; Z68.39 Body mass index [BMI] 39.0-39.9, adult | CPT/HCPCS: 99212 ==

== ENCOUNTER 2025-02-28 10:24 | Outpatient (REF) | payer OTHER, SELFPAY ==
--- OUTSIDE RECORDS SUMMARY | 2025-02-28 11:38 | XMS_ITS | Encounter Summary ---
Author Organization [facility] Address [address] [place] [address] Care Team Providers Care Convenience Store Clerk Name Role Phone Nicolás Andres MD Primary Care Provider [phone] Encounter Details Date Type Department Care Team (Late st Contact Info) Description 02/07/2025 Results Follow-Up Adult Medicine [address] [phone] Delia Zeng PA [address] [place] [address] Social History Tobacco Use Types Packs/Day Years [...] care for your loved ones. For example, children's book author or elderly care for an older adult? [...] Care Team (Late st Contact Info) Description 04/12/2025 10:30 AM EST Consult Bariatric Surgery - [address] [place] [phone] Marie Correa PA [address] [place] [phone] 05/16/2025 7:30 AM EDT Office Visit Adult Medicine [facility] [address] [place], [place] [phone] Delia Zeng PA [address] [place], [place] 06/20/2025 8:45 AM EDT Office Visit Pulmonology [address] [place] [phone] Jaelyn Cohen MD [address] [place] [phone] Scheduled Orders Name Type Priority Associated Diagnoses Orde r Schedule Basic metabolic panel Lab Routine Hypocalcemia 1 Occurrences starting 02/07/2025 until 05/08/2025 Vitamin D 25 hydroxy Lab Routine Hypocalcemia 1 Occurrences starting 02/07/2025 until 05/08/2025 Parathyroid hormone intact Lab Routine Hypocalcemia 1 Occurrences starting 02/07/2025 until 05/08/2025 documented as of this encounter Visit Diagnoses Diagnosis Hypocalcemia- Primary documented in this encounter Additional Health Concerns Assessment Noted Time PHQ-9 Depression Total Score: 0 06/02/19 25 11:42 AM EDT documented as of this encounter Care Teams Convenience Store Clerk Relationship Specialty Start Date End Date Nicolás Andres MD [address] [place] [address] PCP - General Internal Medicine 10/17/20 documented as of this encounter
--- OUTSIDE RECORDS SUMMARY | 2025-02-28 11:38 | XMS_ITS | Encounter Summary ---
Author Organization [facility] Address [address] [place] [address] Care Team Providers Care Haul Truck Driver Name Role Phone Nicolás Andres MD Primary Care Provider [phone] Encounter Details Date Type Department Care Team (Late st Contact Info) Description 01/22/2025 Results Follow-Up [facility] Pulmonary [address] [place] [phone] Jaelyn Cohen MD [address] [place] [phone] Social History Tobacco Use Types Packs/Day Years [...] for your loved ones. For example, children's institution attendant or elderly care for an older [...] PM EST documented as of this encounter Progress Notes * Jaelyn Cohen MD - 01/22/2025 11:18 PM EST Inform patient (letter/phone call) that his Chest xray showed no obvious abnormality. I will discuss with patient further during follow up visit . documented in this encounter Plan of Treatment Upcoming Encounters Date Type Department Care Team (Late st Contact Info) Description 04/12/2025 10:30 AM EST Consult Bariatric Surgery - [place] [address] [facility] [address] [place] [phone] Marie Correa PA [address] [place] [phone] 05/16/2025 7:30 AM EDT Office Visit Adult Medicine [facility] [address] [place], [place] [phone] Delia Zeng PA [address] [place], [place] 06/20/2025 8:45 AM EDT Office Visit Pulmonology - [place] [address] [facility] [address] [place] [phone] Jaelyn Cohen MD [address] [place] [phone] documented as of this encounter Visit Diagnoses Not on filedocumented in this encounter Additional Health Concerns Assessment Noted Time PHQ-9 Depression Total Score: 0 06/02/19 25 11:42 AM EDT documented as of this encounter Care Teams Haul Truck Driver Relationship Specialty Start Date End Date Nicolás Andres MD [address] [place] [address] PCP - General Internal Medicine 10/17/20 documented as of this encounter
--- OUTSIDE RECORDS SUMMARY | 2025-02-28 11:38 | XMS_ITS | Encounter Summary ---
Author Organization [facility] Address [address] [place] [address] Care Team Providers Care Staff Consultant Name Role Phone Nicolás Andres MD Primary Care Provider [phone] Encounter Details Date Type Department Care Team (Latest Contact Info) Description 06/08/2024 Lab Requisition [facility] - Main Lab [address] [place] [phone] Analia Pang NP [address] [facility] [address] [place] [address] Intracardiac thrombosis, not elsewhere classified; Nontraumatic intracerebral [...] care for your loved ones. For example, early childhood education worker or elderly care for an older adult? [...] 10:30 AM EST Consult Bariatric Surgery - [place] [address] [facility] [address] [place] [phone] Marie Correa PA [address] [place] [phone] 05/16/2025 7:30 AM EDT Office Visit Adult Medicine [facility] [address] [place], [place] [phone] Delia Zeng PA [address] [place], [place] 06/20/2025 8:45 AM EDT Office Visit Pulmonology - [place] [address] [facility] [address] [place] [phone] Jaelyn Cohen MD [address] [place] [phone] documented as of this encounter Procedures Procedure Name Priority Date/Time Associated Diagnosis Comments CARBAMAZEPINE LEVEL, TOTAL Routine 06/08/2024 10:00 AM EDT Intracardiac thrombosis, not elsewhere classified Nontraumatic intracerebral hemorrhage, unspecified ([facility] V24, [facility] V28) documented in this encounter Results * Carbamazepine level, total (06/08/2024 10:00 AM EDT) Carbamazepine Level 8.0 8.0 - 12.0 mcg/mL LAB CHEMISTRY METHOD 06/08/2024 11:57 AM EDT [facility] Blood Venous blood specimen / Unknown 06/08/2024 10:00 AM EDT 06/08/2024 11:00 AM EDT Analia Pang NP LAB BLOOD ORDERABLES Nimisha l Result [facility] [address] [place] [address], documented in this encounter Visit Diagnoses Diagnosis Intracardiac thrombosis, not elsewhere classified Nontraumatic intracerebral hemorrhage, unspecified ([facility] V24, [facility] V28) documented in this encounter Additional Health Concerns Assessment Noted Time PHQ-9 Depression Total Score: 0 06/02/19 25 11:42 AM EDT documented as of this encounter Care Teams Staff Consultant Relationship Specialty Start Date End Date Nicolás Andres MD [address] [place] [phone] PCP - General Internal Medicine 10/17/20 documented as of this encounter
--- OUTSIDE RECORDS SUMMARY | 2025-02-28 11:39 | XMS_ITS | Clinical Summary ---
Author Organization Patient Business Ser [facility] Address [address] [place] [address] Care Team Providers Care Substation Technician Name Role Phone Nicolás Andres MD Primary Care Provider [phone] Allergies Active Allergy Reactions Criticality Noted Date Comments Other Runny nose Low 03/22/2019 Seasonal Allergies Medications fluticasone HFA (Flovent HFA) 110 mcg/actuation inhaler TAKE 1 PUFF BY MOUTH TWICE A DAY 3 Active carBAMazepine (CARBATROL) 300 mg 12 hr capsule Take 1 capsule (300 mg total) by mouth 1 (one) time each day. Do not crush or chew. 30 each 5 Active carBAMazepine (CARBATROL) 200 mg 12 hr capsule Take 2 capsules (400 mg total) by mouth at bedtime. Do not crush or chew. 60 each 5 Active clonazePAM (KlonoPIN) 0.5 mg tablet Take 1 tablet (0.5 mg total) by mouth 1 (one) time each day if needed for anxiety for up to 7 days. Max Daily Amount: 0.5 mg 7 tablet 5 Active escitalopram (LEXAPRO) 10 mg tablet Take 1 tablet (10 mg total) by mouth 1 (one) time each day. 90 each 1 5 Active senna 8.6 mg tablet TAKE 1 TABLET BY MOUTH TWICE A DAY 180 tablet 1 5 Active ferrous sulfate 325 mg (65 mg elemental iron) tablet TAKE 1 TABLET BY MOUTH 1 TIME EACH DAY. 90 tablet 1 5 Active losartan (COZAAR) 100 mg tablet TAKE 1 TABLET BY MOUTH 1 TIME EACH DAY. 90 tablet 1 5 Active Ferrocite 324 mg (106 mg iron) tablet TAKE 1 TABLET BY MOUTH EVERY DAY 90 tablet 1 5 Active montelukast (SINGULAIR) 10 mg tablet TAKE 1 TABLET (10 MG TOTAL) BY MOUTH AT BEDTIME. 90 tablet 1 5 Active docusate sodium (COLACE) 100 mg capsule TAKE 1 CAPSULE BY MOUTH TWICE A DAY 180 capsule 1 5 Active Ventolin HFA 90 mcg/actuation inhalerIndication s:Moderate persistent asthma, unspecified whether complicated INHALE 2 PUFFS BY MOUTH EVERY 4 (FOUR) HOURS IF NEEDED FOR WHEEZING. 18 each 5 5 Active atorvastatin (LIPITOR) 40 mg tablet TAKE 1 TABLET BY MOUTH EVERYDAY AT BEDTIME 90 tablet 1 5 Active amLODIPine (NORVASC) 10 mg tabletIndications :Uncontrolled hypertension TAKE 1 TABLET BY MOUTH 1 TIME EACH DAY. 90 tablet 1 5 Active hydroCHLOROthiazi de (HYDRODIURIL) 25 mg tablet Take 1 tablet (25 mg total) by mouth 1 (one) time each day. 90 tablet 1 5 05/30/19 26 Active albuterol HFA (PROAIR HFA ; PROVENTIL HFA ; VENTOLIN HFA) 90 mcg/actuation inhaler Inhale 2 puffs by mouth every 6 (six) hours if needed for wheezing or shortness of breath. 3 each 3 5 12/21/19 26 Active tirzepatide, weight loss, (Zepbound) 2.5 mg/0.5 mL injection Inject 0.5 mL (2.5 mg total) under the skin every 7 (seven) days. 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 Wt 210#; [...] mostly hypopneas; without sleep related hypoventilation by 2018 polysomnogram. Posttraumatic stress disorder 04/28/2018 Uterine fibroid 05/13/2017 Adjustment disorder with mixed anxiety and depre ssed mood 04/15/2017 Overview (01/25/2024): Due to CVA. Follows with therapist, CBT, relaxation methods. Has fears about recurrence of stroke. Cardiac arrest 02/15/2017 Overview (01/25/2024): PEA arrest secondary to hypoxia in the setting of seizure from intraparenchymal hemorrhage 01/2017 CVA (cerebrovascular acciden t due to intracerebral hemorrhage) 02/15/2017 Overview (01/25/2024): Left occipital/parietal hemorrhage 01/2017 hospitalized at [facility] No residual motor deficits. Right peripheral vision disturbance and memory issues. Follows with neurology and neuro-opthalmology (Dr. Daly) and neurology (Dr. Osman) Most recent visual field testing showed mild right homonymous inferior quandrantanopia Diastolic CHF 02/15/2017 Overview (01/25/2024): TTE from 12/2016 EF 55-65 % grade II diastolic dysfunction Primary hypertension 02/15/2017 Iron deficiency anemia due to chronic blood loss 02/15/2017 Overview (01/25/2024): folate, B12, haptoglobin and ferritin are normal Seizure disorder 02/15/2017 Overview (01/25/2024): Seizure following hypertensive hemorrage. Follows with neurology Dr. 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 05/05/2024 Encounters Date Type Department Care Team Description 02/07/2025 Results Follow-Up Adult Medicine [address] [phone] Delia Zeng PA 01/31/2025 Telephone Adult Medicine [address] [phone] Nicolás Andres MD 01/22/2025 2:10 PM EST - 01/22/2025 11:59 PM EST Hospital Encounter XRAY [address] [phone] Mild intermittent asthma, unspecified whether complicated Discharge Disposition: Home or Self Care 01/22/2025 2:00 PM EST - 01/22/2025 11:59 PM EST Hospital Encounter [address] [phone] Right knee pain, unspecified chronicity Discharge Disposition: Home or Self Care 01/22/2025 Results Follow-Up [facility] [address] [place] [phone] Jaelyn Cohen MD 01/22/2025 Telephone Adult Medicine [address] [phone] Nicolás Andres MD 01/16/2025 8:05 AM EST Lab Draw [address] Primary hypertension; Hyperlipidemia, unspecified hyperlipidemia type 01/16/2025 7:30 AM EST Office Visit Adult Medicine [address] [phone] Delia Zeng PA Primary hypertension (Primary Dx); Hyperlipidemia, unspecified hyperlipidemia type; Moderate persistent asthma, unspecified whether complicated; Anxiety; Depression, unspecified depression type; Right knee pain, unspecified chronicity; Class 3 severe obesity with body mass index (BMI) of 40.0 to 44.9 in adult, unspecified obesity type, unspecified whether serious comorbidity present (CMS/HCC V24, CMS/HCC V28) 12/20/2024 8:45 AM EDT Office Visit Pulmonology - [place] [address] [phone] Jaelyn Cohen MD Mild intermittent asthma, unspecified whether complicated (Primary Dx); Moderate persistent asthma, unspecified whether complicated; BUTCH on CPAP 12/20/2024 Telephone Pulmonology [facility] 175 [facility] [address] [place] [phone] Cassy Lancaster MA from Last 3 Months Immunizations Immunization Administration Dates Next Due HepB-CpG (Heplisav-B) 18yo and older 11/10/2024, 10/12/2024 Influenza Quadravalent, MDCK , 0.5ml, preservative free (Flucelvax) 6mo and older 12/05/2021,12/12/2020,12/22/2019, 019,04/28/2018 Influenza trivalent, 0.5mL, preservative free (Fluarix; FluLaval; Fluzone) ages 6mo and older (Afluria) 3 years and older 05/04/2024(Deferred: Contraindication - patient received flu shot from [facility]),12/03/2009 Influenza trivalent, recombi nant, 0.5mL, preservative free [...] negative BARIATRIC SURGERY 07/15/2021 lap sleeve gastrectomy, [facility] Medical History Medical History Date Comments Hypertension 02/15/2017 Cardiac arrest ([facility] V24, [facility] V28) 02/15/2017 PEA arrest secondary to hypo earl in the setting of seizure from intraparenchymal hemorrhage 01/2017 Diastolic CHF ([facility] V24, [facility] V28) 02/15/2017 TTE from 12/2016 EF 55-65 % grade II diastolic dysfunction Obesity (BMI 30-39.9) 02/15/2017 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 Follows with erapist, CBT, relaxation methods. Has fears about recurrence of stroke. Iron deficiency anemia due t o chronic blood loss 02/15/2017 folate, B12, haptoglobin and ferritin are normal H/O menorrhagia 03/15/2017 Follows with [employer] , s/p pelvis US positive for uterine fibroids. Planned for IUD Uterine fibroid 05/13/2017 Seizure disorder ([facility] V2 4, [facility] V28) 02/15/2017 Seizure following hypertensi ve hemorrage. Follows with neurology Dr. Osman CVA (cerebrovascular acciden t due to intracerebral hemorrhage) ([facility] V24, [facility] V28) 02/15/2017 Left occipital/parietal hemo rrhage 01/2017 hospitalized at [facility] No residual motor deficits. Right peripheral vision [...] do you feel lonely or isolated from ose around you? Never 06/01/2024 Food Risk [...] care for your loved ones. For example, manager child or elderly care for an older adult? [...] Sign Reading Time Taken Comments Blood Pressure 120/80 01/16/2025 7:54 AM EST Pulse 76 01/16/2025 7:20 AM EST Temperature 37.2 C (98.9 F) 01/16/2025 7:20 AM EST Respiratory Rate 16 01/16/2025 7:20 AM EST Oxygen Saturation 95% 12/20/2024 8:27 AM EDT Inhaled Oxygen Concentration - - Weight 108 kg (239 lb) 01/16/2025 7:20 AM EST Height 162.6 cm (5' 4 ) 01/16/2025 7:20 AM EST Body Mass Index 41.02 01/16/2025 7:20 AM EST Plan of Treatment Upcoming Encounters Date Type Department Care Team (Late st Contact Info) Description 04/12/2025 10:30 AM EST Consult Bariatric Surgery - [place] [facility] [address] [place] [phone] Marie Correa PA [address] [place] [phone] 05/16/2025 7:30 AM EDT Office Visit Adult Medicine [facility] [address] [place], [place] [phone] Delia Zeng PA [address] [place] [phone] 06/20/2025 8:45 AM EDT Office Visit Pulmonology - [place] [facility] [address] [place] [phone] Jaelyn Cohen MD [address] [place] [phone] Health Maintenance Due Date Last Done Comments HIV Screening 08/18/2021 COVID-19 Vaccine (2024- season) 2024 11/16/2023, 11/20/2022, 11/26/2021, Additional history exists Pneumococcal Vaccine: 50+ Years (3 of 3 - PCV20 or PCV21) 01/02/2025 01/03/2020, 01/28/2017 Social Influencers of Health Screening 06/02/2025 06/02/2024 Hypertension/CHF/CAD Annual BMP Blood Test 01/16/2026 01/16/2025, 09/12/2024, 06/05/2024, Additional history exists Breast Cancer Screening 04/12/2026 04/12/19, 01/13/2023, 01/08/2022, Additional history exists Cervical Cancer Screening: HPV 05/27/2027 05/26/2022 DTaP,Tdap,and Td Vaccines (3 - Td or Tdap) 04/28/2028 04/28/2018, 04/10/2015 Cholesterol Screening (Lipid Panel) 01/16/2030 01/16/2025, 11/16/2023, 11/16/2023 Colorectal Cancer Screening: Colonoscopy 09/24/2030 09/24/2020 Hepatitis C Screening Completed 09/14/2010 Hepatitis A Vaccines Aged Out 04/10/2015 No long er eligible based on patient's age to complete this topic Zoster Vaccines Completed 04/11/2022, 01/03/2022 Depression Screening Completed 06/01/2024 RSV Immunization Adult [...] Procedure Name Priority Date/Time Associated Diagnosis Comments XR KNEE 4+ VIEWS RIGHT Routine 01/22/2025 2:32 PM EST Right knee pain, unspecified chronicity XR CHEST 2 VIEWS Routine 01/22/2025 2:31 PM EST Mild intermittent asthma, unspecified whether complicated LIPID PANEL WITH REFLEX TO DIRECT LDL Routine 01/16/2025 8:15 AM EST Hyperlipidemia, unspecified hyperlipidemia type COMPREHENSIVE METABOLIC PANEL Routine 01/16/2025 8:15 AM EST Primary hypertension MG MAMMO DIGITAL SCREENING W KIKE BILAT Routine 04/12/2024 7:54 AM EST Encounter for screening mammogram for breast cancer HM HPV Routine 05/26/2022 COLONOSCOPY Routine 09/24/2020 HEPATITIS C SCREENING Routine 09/14/2010 from Last 3 Months or Most Recently Relevant to Health Maintenance Results * XR Knee 4+ Views Right (01/22/2025 2:32 PM EST) Anatomical Region Laterality Modality Lower Extremities, Knee Right Radiogra phic Imaging 01/22/2025 5:40 PM EST Impressions 01/22/2025 5:43 PM EST Degenerative changes. -------- FINAL REPORT -------- Dictated By: Zainab Acuna Dictated Date: 01/22/2025 17:40 ET Assigned Physician: Zainab Acuna Reviewed and Electronically Signed By: Zainab Acuna Signed Date: 01/22/2025 17:43 ET Workstation ID: [id number] Transcribed By: Self Edit Transcribed Date: 01/22/2025 17:40 ET Narrative 01/22/2025 5:43 PM EST EXAM: Right knee x-ray HISTORY: Right knee pain. COMPARISON: None VIEWS: 4 views performed, AP and tunnel views performed weightbearing. FINDINGS: Moderate joint space narrowing in the lateral compartment. Tricompartment spurring. No acute fracture or malalignment detected. No destructive bone lesion. No significant joint effusion. Procedure Note Zainab Acuna MD - 01/22/2025 EXAM: Right knee x-ray HISTORY: Right knee pain. COMPARISON: None VIEWS: 4 views performed, AP and tunnel views performed weightbearing. FINDINGS: Moderate joint space narrowing in the lateral compartment. Tricompartmentspurring. No acute fracture or malalignment detected. No destructive bonelesion. No significant joint effusion. IMPRESSION: Degenerative changes. -------- FINAL REPORT -------- Dictated By: Zainab Acuna Dictated Date: 01/22/2025 17:40 ET Assigned Physician: Zainab Acuna Reviewed and Electronically Signed By: Zainab Acuna Signed Date: 01/22/2025 17:43 ET Workstation ID: [id number] Transcribed By: Self Edit Transcribed Date: 01/22/2025 17:40 ET Delia Zeng PA IMG XR PROCEDURES Final Result * XR Chest 2 Views (01/22/2025 2:31 PM EST) Anatomical Region Laterality Modality Body Radiographic Jenifer ging 01/22/2025 5:36 PM EST Impressions 01/22/2025 5:40 PM EST No evidence of an acute chest process. POS - [id number] -------- FINAL REPORT -------- Dictated By: Zainab Acuna Dictated Date: 01/22/2025 17:36 ET Assigned Physician: Zainab Acuna Reviewed and Electronically Signed By: Zainab Acuna Signed Date: 01/22/2025 17:40 ET Workstation ID: [id number] Transcribed By: Self Edit Transcribed Date: 01/22/2025 17:36 ET Narrative 01/22/2025 5:40 PM EST EXAM: Chest x-ray HISTORY: Dyspnea. Mild intermittent asthma. COMPARISON: None FINDINGS: PA and lateral views of the chest were performed. No focal infiltrate, pleural effusion, or evidence of pulmonary edema. Eventration of the right anterior hemidiaphragm. No pneumothorax. Heart is not enlarged. Mediastinal contours appear within normal limits. No compression deformities. Surgical clips in the left upper abdomen. Procedure Note Zainab Acuna MD - 01/22/2025 EXAM: Chest x-ray HISTORY: Dyspnea. Mild intermittent asthma. COMPARISON: None FINDINGS: PA and lateral views of the chest were performed. No focal infiltrate, pleural effusion, or evidence of pulmonary edema.Eventration of the right anterior hemidiaphragm. No pneumothorax. Heart isnot enlarged. Mediastinal contours appear within normal limits. Nocompression deformities. Surgical clips in the left upper abdomen. IMPRESSION: No evidence of an acute chest process. POS - [id number] -------- FINAL REPORT -------- Dictated By: Zainab Acuna Dictated Date: 01/22/2025 17:36 ET Assigned Physician: Zainab Acuna Reviewed and Electronically Signed By: Zainab Acuna Signed Date: 01/22/2025 17:40 ET Workstation ID: [id number] Transcribed By: Self Edit Transcribed Date: 01/22/2025 17:36 ET Jaelyn Cohen MD IMG XR PROCEDURES Final Result * Lipid panel with reflex to direct LDL (01/16/2025 8:15 AM EST) Cholesterol 166 0 - 200 mg/dL 01/16/2025 1:20 PM [facility] Triglycerides 87 0 - 150 mg/dL 01/16/2025 1:20 PM [facility] HDL 56 >=40 mg/dL 01/16/2025 1:20 PM [facility] LDL Calculated 93 0 - 100 mg/dL 01/16/2025 1:20 PM [facility] Comment:Estimated LDL Calcul ated using equation: Total cholesterol - HDL cholesterol - (Triglycerides/5) VLDL Cholesterol Kyaw 17.4 mg/dL 01/16/2025 1:20 PM [facility] Non HDL Chol. (LDL+VLDL) 110 <145 mg/dL 01/16/2025 1:20 PM [facility] Chol/HDL Ratio 3.0 0.0 - 4.4 01/16/2025 1:20 PM [facility] Blood Venous blood specimen / Unknown Venipuncture / Unknown 01/16/2025 8:15 AM EST 01/16/2025 8:15 AM EST us Delia HOBBS LAB BLOOD ORDERABLES Fi nal Result [facility] [address] [place] [address], [place] [phone] * (ABNORMAL) Comprehensive metabolic panel (01/16/2025 8:15 AM EST) Sodium 140 133 - 145 mmol/L 01/16/2025 1:20 PM [facility] Potassium 3.9 3.5 - 5.5 mmol/L 01/16/2025 1:20 PM [facility] Chloride 98 96 - 110 mmol/L 01/16/2025 1:20 PM [facility] CO2 33(H) 21 - 32 mmol/L 01/16/2025 1:20 PM [facility] Anion Gap 9 3 - 11 01/16/2025 1:20 PM [facility] Glucose 84 70 - 100 mg/dL 01/16/2025 1:20 PM [facility] BUN 17 5 - 25 mg/dL 01/16/2025 1:20 PM [facility] Creatinine 0.88 0.50 - 1.10 mg/dL 01/16/2025 1:20 PM [facility] eGFR 78 >=60 mL/min/1. 73m2 01/16/2025 1:20 PM [facility] Comment:Calculation based on the Chronic Kidney Disease Epidemiology Collaboration (CKD-EPI) equation refit without adjustment for race. BUN/Creatinine Ratio 19.3 01/16/2025 1:20 PM [facility] Calcium 8.1(L) 8.5 - 10.5 mg/dL 01/16/2025 1:20 PM [facility] AST (SGOT) 18 10 - 42 unit/L 01/16/2025 1:20 PM [facility] ALT (SGPT) 19 10 - 60 unit/L 01/16/2025 1:20 PM [facility] Alkaline Phosphatase 94 42 - 121 unit/L 01/16/2025 1:20 PM [facility] Total Protein 6.8 6.0 - 8.0 g/dL 01/16/2025 1:20 PM [facility] Albumin 4.0 3.2 - 5.0 g/dL 01/16/2025 1:20 PM [facility] Total Bilirubin 0.3 0.0 - 1.4 mg/dL 01/16/2025 1:20 PM [facility] Blood Venous blood specimen / Unknown Venipuncture / Unknown 01/16/2025 8:15 AM EST 01/16/2025 8:15 AM EST us Delia HOBBS LAB BLOOD ORDERABLES Fi nal Result [facility] [address] [place] [address], * MG Mammo Digital Screening w Kike bilat (04/12/2024 7:54 AM EST) Anatomical Region Laterality Modality Breast Bilateral Mammography 04/12/2024 9:53 AM EST Impressions 04/12/2024 9:59 AM EST No mammographic evidence for malignancy. BI-RADS CATEGORY: 1 - NEGATIVE RECOMMENDATION: Screening bilateral mammogram is recommended in 1 year. Mammo Location: [facility], [address] [place] [address], [id number], . -------- FINAL REPORT -------- Dictated By: Brenda Yates Dictated Date: 04/12/2024 09:53 ET Assigned Physician: Brenda Yates Reviewed and Electronically Signed By: Brenda Yates Signed Date: 04/12/2024 09:59 ET Workstation ID: [id number] Transcribed By: Self Edit Transcribed Date: 04/12/2024 [...] is recommended in 1 year. Mammo Location: [facility], [address] [place] [address], [id number], . -------- FINAL REPORT -------- Dictated By: Brenda Yates Dictated Date: 04/12/2024 09:53 ET Assigned Physician: Brenda Yates Reviewed and Electronically Signed By: Brenda Yates Signed Date: 04/12/2024 09:59 ET Workstation ID: [id number] Transcribed By: Self Edit Transcribed Date: 04/12/2024 09:53 ET Nicolás Andres MD IMG BI PROCEDURES Final Result * Cervical Cancer Screening: HPV (05/26/2022) [facility] Cervical Cancer Screening: HPV Negative, Abstracted Historical Provider HEALTH MAINTENANCE Final Result * Colonoscopy (09/24/2020) [facility] Colonoscopy No Interpretation , Abstracted Anatomical Region Laterality Modality Other Historical Provider HEALTH MAINTENANCE Final Result * Hepatitis C Screening (09/14/2010) [facility] Hepatitis C Screening Abstracted Historical Provider HEALTH MAINTENANCE Final Result from Last 3 Months or Most Recently Relevant to Health Maintenance Insurance [facility] [address] Advance Directives Documents on File Type Date Recorded Patient Social Media Intern Expl anation Advance Directives and Living Will [...] Agents on File Name Relationship Healthcare Agent [facility] Communication Damari Knox [facility] Alternate Health Care Agent Care Teams Substation Technician Relationship Specialty Start Date End Date Nicolás Andres MD [address] [place] [phone] PCP - General Internal Medicine 10/17/20
[2025-02-28 14:24] LABS: Carbamazepine Tegretol 10.8 mcg/mL (5.0-12.0)
[2025-02-28 14:54] LABS: Alanine Aminotransferase 18 U/L (0-31); Albumin Level 4.4 g/dL (3.5-5.0); Alkaline Phosphatase 85 U/L (39-117); Anion Gap 11 (12-20); Aspartate Amino Transferase 28 U/L (5-31); Blood Urea Nitrogen 12 mg/dL (9-16); Calcium 9.4 mg/dL (8.4-10.2); Carbon Dioxide 33 mmol/L (22-29); Chloride 103 mmol/L (96-108); Estimated Glomerular Filt Rate > 60; Potassium 3.6 mmol/L (3.3-5.1); Sodium 143 mmol/L (135-145); Total Protein 7.9 g/dL (6.5-8.0)
[2025-02-28 15:11] LABS: Vitamin B12 525 pg/mL (200-900)
== END 2025-02-28 10:25 | disposition home or self-care (01) ==
LOC: HO.HKASLDS 10:24
PROVIDERS: PCP Internal Medicine; Visit Provider Nurse Practitioner
DX: R41.89 Other symptoms and signs involving cognitive functions and awareness (principal); I63.9 Cerebral infarction, unspecified; R56.9 Unspecified convulsions
CPT/HCPCS: 36415; 80053; 80156; 82607; 84443